=== PATIENT | male | born 1940 | race Caucasian/White ===

== ENCOUNTER 2016-12-19 11:59 | Emergency (ER) | payer OTHER ==
[~2016-12-19] VITALS: Ht 180.3 cm; Wt 68.9 kg
[2016-12-19 12:50] LABS: *BILIRUBIN,URIN 1+ (NEGATIVE); *BLOOD, URINE NEGATIVE (NEGATIVE); *CLARITY,URINE CLEAR (CLEAR); *KETONES,URINE NEGATIVE (NEGATIVE); LEUKOCYTE ESTERASE ,URINE NEGATIVE (NEGATIVE); NITRITE, URINE NEGATIVE (NEGATIVE); UGLUCOSE NEGATIVE (NEGATIVE)
[2016-12-19 12:51] LABS: BASOPHILS # (AUTO) 0.1 K/uL (0.0-8.0); BASOPHILS % (AUTO) 1.9 % (0.0-2.0); EOSINOPHILS # (AUTO) 0.2 K/uL (0.0-0.7); EOSINOPHILS % (AUTO) 3.1 % (0.0-7.0); HEMATOCRIT 35.3 % (40-50); HEMOGLOBIN 11.1 G/DL (14.0-18.0); LYMPHOCYTES # (AUTO) 1.8 K/UL (0.8-4.8); LYMPHOCYTES % (AUTO) 31.3 % (20.5-51.5); MEAN CORPUSCULAR HEMOGLOBIN 29.4 UUG (27.0-31.0); MEAN CORPUSCULAR HGB CONC 31 g/dL (32.0-37.0); MEAN CORPUSCULAR VOLUME 93.6 FL (82.0-92.0); MONOCYTES # (AUTO) 0.4 K/UL (0.1-1.30); NEUTROPHILS # (AUTO) 3.4 K/UL (1.8-8.9); NEUTROPHILS % (AUTO) 57.7 % (38.5-71.5); PLATELET COUNT (AUTO) 214 K/UL (150-450); RED BLOOD CELL COUNT(AUTO) 3.78 MIL/UL (4.7-6.1); RED CELL DISTRIBUTION WIDTH 14.6 % (11.5-14.5); WHITE BLOOD COUNT (AUTO) 5.9 K/UL (4.0-11.2)
[2016-12-19 13:02] LABS: *COLOR,URINE DARK YELLOW (YELLOW); *PROTEIN,URINE TRACE (NEGATIVE)
[2016-12-19 13:03] LABS: BACTERIA,URINE NONE SEEN /HPF (NONE SEEN); RBC,URINE 0-3 /HPF (0-3); SQUAMOUS EPITHELIAL CELL,UR FEW /HPF (NONE SEEN); WBC,URINE 0-3 /HPF (0-3)
[2016-12-19 13:04] LABS: MUCUS,URINE MANY /LPF (0-FEW)
[2016-12-19 13:13] LABS: CALCIUM 8.7 mg/dL (8.5-10.1); CREATININE 1.1 mg/dL (0.6-1.3); POTASSIUM 4.3 mmol/L (3.5-5.1)
[2016-12-19 13:28] LABS: ALBUMIN 3.4 g/dL (3.4-5.0); BILIRUBIN,DIRECT 0.1 mg/dL (0.0-0.2); BILIRUBIN,TOTAL 0.6 mg/dL (0.2-1.0); TOTAL PROTEIN, SERUM 7.7 g/dL (6.4-8.2)
--- NOTE | 2016-12-19 13:44 | NUR ---
1341- Patient discharged to home in stable conditon. Written and verbal after care instructions given to patient. Patient verbalizes understanding of instructions.
== END 2016-12-19 13:45 | disposition home or self-care (01) ==
LOC: ER 12:12
DX: N40.0 Benign prostatic hyperplasia without lower urinary tract symptoms (principal); F17.200 Nicotine dependence, unspecified, uncomplicated
CPT/HCPCS: 36415; 80048; 80076; 81001; 85025; 99284; A4663

== ENCOUNTER 2017-03-14 18:12 | Emergency (ER) | payer SELFPAY ==
[~2017-03-14] VITALS: Ht 180.3 cm; Wt 70.3 kg
--- NOTE | 2017-03-14 18:40 | NUR ---
DR KRUEGER AT THE BEDSIDE FOR EVAL AND EXAM.
[2017-03-14] MEDS ORDERED: ACETAMINOPHEN 325 MG TABLET PO ONE (18:45)
[2017-03-14] MEDS ORDERED: ACETAMINOPHEN 325 MG TABLET ONE (18:56)
--- NOTE | 2017-03-14 19:08 | NUR ---
Received report from JACOB Coyne. Assumed care of pt at this time. Xray at bedside.
--- NOTE | 2017-03-14 19:27 | NUR ---
PT stable for discharge per MD. Pt given ACI. Pt verbalized understanding of dc instructions. Pt ambulated out of er with steady gait.
[2017-03-14 19:29] VITALS: BP 162/60
== END 2017-03-14 19:30 | disposition home or self-care (01) ==
LOC: ER 18:13
DX: S56.911A Strain of unspecified muscles, fascia and tendons at forearm level, right arm, initial encounter (principal); S80.02XA Contusion of left knee, initial encounter; N40.0 Benign prostatic hyperplasia without lower urinary tract symptoms; F17.200 Nicotine dependence, unspecified, uncomplicated; V79.59XA Passenger on bus injured in collision with other motor vehicles in traffic accident, initial encounter; Y93.89 Activity, other specified; Y92.413 State road as the place of occurrence of the external cause; Y99.9 Unspecified external cause status
CPT/HCPCS: A4663

== ENCOUNTER 2021-11-21 15:07 | Inpatient (IN) | payer OTHER ==
[~2021-11-21] VITALS: Ht 180.3 cm; Wt 69.9 kg
--- NOTE | 2021-11-21 15:15 | NUR ---
[facility] brought patient in found [place] the bus stop defacated on self, bilateral legs swollen, patient is hot to touch, afib. patient taken to room 3a. waiting for ER physician for eval.
[2021-11-21] MEDS ORDERED: VANCOMYCIN IV 1,000 MG in IV DEXTROSE 5% 250 ML IV ONE (15:30)
[2021-11-21] MEDS ORDERED: DILTIAZEM HCL 25 MG IV IV ONE (15:30)
[2021-11-21] MEDS ORDERED: ACETAMINOPHEN 325 MG SUPP RC ONE (15:30)
[2021-11-21] MEDS ORDERED: IV NORMAL SALINE 1000 ML BAG IV ONE ×3 (15:30→17:00)
[2021-11-21] MEDS ORDERED: ACETAMINOPHEN 650 MG SUPP.RECT RC ONE ×2 (15:30→16:30)
[2021-11-21 16:21] LABS: ABG BASE EXCESS -5.8 mmol/L; ABG HCO3 14.3 mmol/L; ABG PCO2 17.9 mmHg (35.0-45.0); ABG PH 7.519 (7.350-7.450); ABG PO2 393.5 mmHg (75.0-100.0); ABG SITE RIGHT RADIAL; COHb 0.3 % (0.5-1.5); MetHb 0.3 % (0.0-1.5); O2Hb 99.3 % (94.0-97.0)
[2021-11-21 16:24] LABS: HEMATOCRIT 40.8 % (36.7-47.1); MEAN CORPUSCULAR HEMOGLOBIN 32.2 uug (23.8-33.4); MEAN CORPUSCULAR VOLUME 95.6 fL (73.0-96.2); PLATELET COUNT (AUTO) 101 K/uL (152-348)
[2021-11-21] MEDS ORDERED: VANCOMYCIN IV 200 ML ONE (16:29)
[2021-11-21] MEDS ORDERED: ONDANSETRON 4 MG/2 ML VIAL IV ONE (16:30)
[2021-11-21] MEDS ORDERED: ACETAMINOPHEN 325 MG SUPP ONE (16:30)
[2021-11-21] MEDS ORDERED: MORPHINE SULFATE 2 MG/1 ML DISP.SYRIN IV ONE (16:30)
[2021-11-21] MEDS ORDERED: ONDANSETRON 4 MG/2 ML VIAL ONE (16:30)
[2021-11-21] MEDS ORDERED: MORPHINE SULFATE 2 MG/1 ML DISP.SYRIN ONE (16:30)
[2021-11-21 16:35] LABS: *BILIRUBIN,URIN 2+ (NEGATIVE); *BLOOD, URINE 3+ (NEGATIVE); *CLARITY,URINE CLOUDY (CLEAR); *COLOR,URINE DARK YELLOW (YELLOW); *KETONES,URINE TRACE (NEGATIVE); *UROBILINOGEN,URINE 0.2 E.U./dl (NORMAL); LEUKOCYTE ESTERASE ,URINE NEGATIVE (NEGATIVE); NITRITE, URINE NEGATIVE (NEGATIVE); UGLUCOSE NEGATIVE (NEGATIVE)
[2021-11-21 16:40] LABS: ALANINE AMINOTRANSFERASE 230 U/L (16-63); ALKALINE PHOSPHATASE 38 U/L (50-136); ASPARTATE AMINOTRANSFERASE 636 U/L (15-37); BILIRUBIN,DIRECT 0.5 mg/dL (0.0-0.2); BILIRUBIN,TOTAL 1.8 mg/dL (0.2-1.0); CARBON DIOXIDE 17 mmol/L (21-32); CHLORIDE 105 mmol/L (98-107); CREATININE 5.6 mg/dL (0.6-1.3); ETHANOL < 3 MG/DL (0-0); GLUCOSE 97 mg/dL (74-106); POTASSIUM 3.9 mmol/L (3.5-5.1); TOTAL PROTEIN, SERUM 6.3 g/dL (6.4-8.2)
[2021-11-21 16:41] LABS: *AMPHETAMINE, URINE NEGATIVE (NEGATIVE); *CANNABINOID, URINE NEGATIVE (NEGATIVE); *COCCAINE, URINE NEGATIVE (NEGATIVE); *OPIATE, URINE NEGATIVE (NEGATIVE); *PHENCYCLIDINE SCREEN,URINE NEGATIVE (NEGATIVE)
[2021-11-21 16:45] LABS: ACETAMINOPHEN < 2.0 ug/mL (10-30)
[2021-11-21 16:46] LABS: UREA NITROGEN, BLOOD 84 mg/dL (7-18)
[2021-11-21 16:56] LABS: THYROID STIMULATING HORMONE 3.497 mIU/mL (0.358-3.740)
[2021-11-21] MEDS ORDERED: DILTIAZEM HCL 25 MG IV ONE (16:57)
[2021-11-21] MEDS ORDERED: PIPERACILLIN SODIUM/TAZOBACTAM 3.375 G in IV DEXTROSE 5% 50 ML IV ONE (17:00)
[2021-11-21] MEDS ORDERED: PIPERACILLIN/TAZOBACTAM/D5W 50 ML IV ONE (17:03)
[2021-11-21 17:49] LABS: CREATINE KINASE, TOTAL > 14000 U/L (39-308)
[2021-11-21] MEDS ORDERED: LORAZEPAM 2 MG/1 ML VIAL IV ONE (18:15)
[2021-11-21] MEDS ORDERED: MORPHINE SULFATE 2 MG/1 ML DISP.SYRIN IV PRN (18:30)
[2021-11-21] MEDS ORDERED: LORAZEPAM 2 MG/1 ML VIAL IV PRN (18:30)
[2021-11-21] MEDS ORDERED: ONDANSETRON 4 MG/2 ML VIAL IV PRN (18:30)
--- NOTE | 2021-11-21 18:37 | NUR ---
Patient back from CT scan. wound care done. continue IV fluids and abx.
[2021-11-21 18:51] LABS: BACTERIA,URINE FEW /HPF (NONE SEEN); WBC,URINE 0-3 /HPF (0-3)
[2021-11-21 18:52] LABS: SQUAMOUS EPITHELIAL CELL,UR NONE SEEN /HPF (NONE SEEN)
[2021-11-21] MEDS ORDERED: AMIODARONE HCL IV 150 MG in IV DEXTROSE 5% 100 ML IV ONE (19:15)
--- NOTE | 2021-11-21 19:20 | NUR ---
report given to elias JAMES. informed Carol of critical labs new orders placed by carol.
[2021-11-21] MEDS ORDERED: AMIODARONE HCL 150 MG/3 ML VIAL IV ONE (19:22)
[2021-11-21 19:30] VITALS: BP 123/67
--- NOTE | 2021-11-21 19:30 | NUR ---
Received report from Raven JAMES. Pt awake and alert, respiration even and unlabored, NC @2L O2 sat 94% Denies any difficulty breathing/no SOB. ILEANA PIV g 20 intact, unable to flush, Lt Wrist PIV g20 intact. PICC line ordered by Dr Pizano. On supervisor policy change clerks Afib RVR 130's, SBP 90-100's. Amiodarone ordered, Pt denies any CP. Reese catheter intact, draining beverley cloudy colored urine about 50 ml in the bag. Dressing to bilateral leg intact. Will closely monitor pt condition, transfer pt to ICU bed.
[2021-11-21 20:00] VITALS: BP 93/53
[2021-11-21 21:00] VITALS: BP 93/50
[2021-11-21] MEDS: AMIODARONE HCL IV 450 MG in IV DEXTROSE 5% 250 ML IV PRN (21:38)
[2021-11-21] MEDS ORDERED: HEPARIN SODIUM,PORCINE 5,000 UNITS/ML VIAL ONE (21:43)
[2021-11-21] MEDS ORDERED: CLINDAMYCIN PHOSPHATE 600 MG/4 ML VIAL ONE (21:43)
[2021-11-21] MEDS: CLINDAMYCIN PHOSPHATE IV 600 MG in IV DEXTROSE 5% 100 ML IV SCH (21:46)
[2021-11-21] MEDS: HEPARIN SODIUM,PORCINE 5,000 UNITS/ML VIAL SQ SCH (21:47)
[2021-11-21] MEDS: IV NS 1000 ML 1,000 ML IV PRN (21:51)
[2021-11-21 22:00] VITALS: BP_SYST 92; BP_SYST 93; BP_DIAS 48; BP_DIAS 56
[2021-11-21] MEDS ORDERED: PIPERACILLIN/TAZO 2.25 G in IV DEXTROSE 5% 50 ML IV SCH (22:00)
[2021-11-21 22:52] LABS: CARBON DIOXIDE 20 mmol/L (21-32); CHLORIDE 107 mmol/L (98-107); GLUCOSE 99 mg/dL (74-106); POTASSIUM 3.9 mmol/L (3.5-5.1)
[2021-11-21 22:53] LABS: CREATININE 5.6 mg/dL (0.6-1.3); UREA NITROGEN, BLOOD 82 mg/dL (7-18)
[2021-11-21 23:00] VITALS: BP 62/44
--- NOTE | 2021-11-21 23:15 | NUR ---
SBP 60's Joseph GROUND SUPPORT AGENT made aware with order to start Levophed Drip.
[2021-11-21] MEDS ORDERED: NOREPINEPHRINE BITARTRATE 4 MG/4 ML VIAL IV ONE (23:21)
[2021-11-21] MEDS ORDERED: NOREPINEPHRINE BITARTRATE 8 MG in IV NORMAL SALINE 242 ML IV PRN (23:30)
[2021-11-22] VITALS (92 sets, daily range): BP systolic 72–143; BP diastolic 45–79
[2021-11-22] MEDS ORDERED: NOREPINEPHRINE BITARTRATE 8 MG in IV NORMAL SALINE 242 ML IV PRN ×2
--- NOTE | 2021-11-22 00:06 | NUR ---
Levophed drip started titrated to maintain SBP >90.
--- NOTE | 2021-11-22 00:28 | NUR ---
Called and left a message to Joseph BROWN regarding pt's HR 120-130, awaiting to call back.
--- NOTE | 2021-11-22 00:36 | NUR ---
Called the answering service for [facility], awaiting Dr Perera to call back.
[2021-11-22] MEDS ORDERED: DIGOXIN 500 MCG/2 ML AMP IV ONE (00:45)
[2021-11-22] MEDS ORDERED: DIGOXIN 500 MCG/2 ML AMP IV SCH (00:45)
--- NOTE | 2021-11-22 00:50 | NUR ---
Dr Perera called back and updated on pt's present condition, AFib 130-140's Levophed drip, amio drip with order to give Digoxin IV and change levophed drip to Neosynephrine Drip.
[2021-11-22] MEDS ORDERED: AMIODARONE HCL 150 MG/3 ML VIAL IV ONE (01:27)
[2021-11-22] MEDS ORDERED: PHENYLEPHRINE 10 MG/1 ML VIAL ONE (01:29)
[2021-11-22] MEDS: PHENYLEPHRINE IV 50 MG in IV NORMAL SALINE 245 ML IV PRN ×2 (01:56→19:22)
[2021-11-22] MEDS: AMIODARONE HCL IV 450 MG in IV DEXTROSE 5% 250 ML IV PRN ×2 (02:13→14:03)
[2021-11-22] MEDS ORDERED: PIPERACILLIN/TAZO 2.25 G in IV DEXTROSE 5% 50 ML IV SCH (04:00)
[2021-11-22] MEDS: IV NS 1000 ML 1,000 ML IV PRN (04:03)
--- NOTE | 2021-11-22 04:03 | NUR ---
Titrated Neosynephrine to maintain SBP >90.
[2021-11-22] MEDS ORDERED: PIPERACILLIN/TAZO 2.25 GM VIAL ONE (04:05)
[2021-11-22] MEDS ORDERED: CLINDAMYCIN PHOSPHATE 600 MG/4 ML VIAL ONE (05:09)
[2021-11-22] MEDS: CLINDAMYCIN PHOSPHATE IV 600 MG in IV DEXTROSE 5% 100 ML IV SCH ×3 (05:13→22:39)
[2021-11-22 06:18] LABS: CARBON DIOXIDE 18 mmol/L (21-32); CHLORIDE 107 mmol/L (98-107); GLUCOSE 93 mg/dL (74-106); PHOSPHOROUS 6.5 mg/dL (2.5-4.9); POTASSIUM 4.6 mmol/L (3.5-5.1)
--- NOTE | 2021-11-22 06:44 | NUR ---
Urine output minimal, Joseph HOT POND OPERATOR made aware. Orders made and carried out.
[2021-11-22 07:05] LABS: UREA NITROGEN, BLOOD 90 mg/dL (7-18)
[2021-11-22] MEDS ORDERED: SODIUM BICARBONATE 8.4% 50 MEQ in IV D5W 1000ML 1,000 ML IV PRN ×2 (07:15→07:25)
--- NOTE | 2021-11-22 07:58 | NUR ---
Patient is in bed, resting. Easily arousable. AO x 3. Running Neosynephrine at 0.7mcg and amiodarone at 0.5mg. No respiratory distress at the moment. On 2L nasal cannula saturating 98%. Left upper arm PICC line patent and intact. Reese catheter draining minimal urine. Dressing on bilateral lower extremities intact.
[2021-11-22] MEDS ORDERED: THIAMINE HCL 100 MG TABLET ONE (08:22)
[2021-11-22] MEDS ORDERED: PANTOPRAZOLE SODIUM 40 MG VIAL ONE (08:22)
[2021-11-22] MEDS ORDERED: ASPIRIN EC 81 MG TABLET.DR PO ONE (08:22)
[2021-11-22] MEDS ORDERED: HEPARIN SODIUM,PORCINE 5,000 UNITS/ML VIAL ONE (08:22)
[2021-11-22] MEDS: PANTOPRAZOLE SODIUM 40 MG VIAL IV SCH (08:24)
[2021-11-22] MEDS: ASPIRIN EC 81 MG TABLET.DR PO SCH ×2 (08:24→09:00)
[2021-11-22] MEDS: THIAMINE HCL 100 MG TABLET PO SCH ×2 (08:24→09:00)
[2021-11-22] MEDS: HEPARIN SODIUM,PORCINE 5,000 UNITS/ML VIAL SQ SCH (08:43)
--- NOTE | 2021-11-22 08:45 | NUR ---
Patient presents with difficulty swallowing. Conducted bedside swallow eval and patient retains water in mouth. Patient also states that he has a hard time to swallow. Awaiting speech therapy to conduct swallow eval.
--- NOTE | 2021-11-22 09:19 | NUR ---
Dr. Gerard at bedside assesing patient with order to bolus patient with 500mL of NS and to continue with the 150mL/hr of NS.
[2021-11-22 10:10] LABS: HEMATOCRIT 34.8 % (36.7-47.1); MEAN CORPUSCULAR HEMOGLOBIN 32.7 uug (23.8-33.4); MEAN CORPUSCULAR VOLUME 96.2 fL (73.0-96.2); PLATELET COUNT (AUTO) 50 K/uL (152-348)
[2021-11-22] MEDS ORDERED: IV NORMAL SALINE 1000 ML BAG IV ONE (10:15)
[2021-11-22] MEDS ORDERED: IV NORMAL SALINE 500 ML BAG IV ONE (10:15)
[2021-11-22 10:16] LABS: CARBON DIOXIDE 18 mmol/L (21-32); CHLORIDE 106 mmol/L (98-107); GLUCOSE 161 mg/dL (74-106); POTASSIUM 4.3 mmol/L (3.5-5.1)
[2021-11-22 10:17] LABS: UREA NITROGEN, BLOOD 89 mg/dL (7-18)
[2021-11-22] MEDS ORDERED: IV NORMAL SALINE 500 ML IV ONE (10:30)
[2021-11-22] MEDS ORDERED: IV NS 1000 ML 1,000 ML IV PRN ×2 (10:30→10:45)
--- NOTE | 2021-11-22 10:36 | NUR ---
followed up with Dr. Gerard and stated no need for NS at 150mL/hr
--- NOTE | 2021-11-22 10:55 | NUR ---
Patient seen by speech therapist for swallow eval. Patient need to be kept NPO for now, unable to swallow.
--- NOTE | 2021-11-22 11:01 | NUR ---
Per Roberto, order thiamine 100mg IVPB, and for patient to be NPO
[2021-11-22] MEDS ORDERED: THIAMINE HCL 200 MG/2 ML VIAL IV SCH (11:30)
[2021-11-22 12:38] LABS: CARBON DIOXIDE 19 mmol/L (21-32); CHLORIDE 108 mmol/L (98-107); CREATININE 5.9 mg/dL (0.6-1.3); GLUCOSE 165 mg/dL (74-106); POTASSIUM 4.3 mmol/L (3.5-5.1)
[2021-11-22 12:43] LABS: UREA NITROGEN, BLOOD 92 mg/dL (7-18)
--- NOTE | 2021-11-22 12:51 | NUR ---
Woundcare rendered. Wound cultures of left and right leg sent. Wound encompass a large surface area on both left and right lower extremities. Wound appears red, sloughed and heavily oozing. Awaiting wound care consult.
[2021-11-22] MEDS: THIAMINE HCL INJ 100 MG in IV DEXTROSE 5% 50 ML IV SCH (13:01)
--- NOTE | 2021-11-22 14:30 | NUR ---
Patient getting echocardiogram done.
[2021-11-22] MEDS: PIPERACILLIN/TAZO 2.25 G in IV DEXTROSE 5% 50 ML IV SCH ×2 (15:02→22:45)
--- NOTE | 2021-11-22 15:44 | NUR ---
Per Dr. Gerard, decrease the fluids to 75mL/hr
[2021-11-22] MEDS: SODIUM BICARBONATE 8.4% 50 MEQ in IV D5W 1000ML 1,000 ML IV PRN (17:28)
[2021-11-22 20:20] LABS: CARBON DIOXIDE 19 mmol/L (21-32); CHLORIDE 103 mmol/L (98-107); CREATININE 6.7 mg/dL (0.6-1.3); GLUCOSE 134 mg/dL (74-106); POTASSIUM 4.6 mmol/L (3.5-5.1)
--- NOTE | 2021-11-22 20:23 | NUR ---
Per Dr. Gerard, keep patient on amiodarone at 0.5mg/min and will evaluate patient in the morning.
[2021-11-22 20:42] LABS: UREA NITROGEN, BLOOD 97 mg/dL (7-18)
[2021-11-22 20:45] LABS: BAND % (MANUAL) 22 % (0-10); LYMPHOCYTES % (MANUAL) 4 % (20-40); MONOCYTES % (MANUAL) 4 % (2-10); NEUTROPHILS % (MANUAL) 70 % (42-75)
[2021-11-22] MEDS ORDERED: HEPARIN SODIUM,PORCINE 5,000 UNITS/ML VIAL SQ SCH (21:00)
[2021-11-23] VITALS (62 sets, daily range): BP systolic 54–169; BP diastolic 29–113
[2021-11-23] MEDS ORDERED: AMIODARONE HCL 150 MG/3 ML VIAL IV ONE (02:44)
[2021-11-23] MEDS: CLINDAMYCIN PHOSPHATE IV 600 MG in IV DEXTROSE 5% 100 ML IV SCH ×2 (05:07→18:32)
[2021-11-23 05:14] LABS: ALANINE AMINOTRANSFERASE 365 U/L (16-63); ALKALINE PHOSPHATASE 39 U/L (50-136); ASPARTATE AMINOTRANSFERASE 391 U/L (15-37); BILIRUBIN,TOTAL 1.3 mg/dL (0.2-1.0); CARBON DIOXIDE 23 mmol/L (21-32); CHLORIDE 104 mmol/L (98-107); CREATININE 6.9 mg/dL (0.6-1.3); GLUCOSE 121 mg/dL (74-106); MAGNESIUM 2.2 mg/dL (1.8-2.4); PHOSPHOROUS 6.3 mg/dL (2.5-4.9); POTASSIUM 4.7 mmol/L (3.5-5.1); VANCOMYCIN,RANDOM 10.9 ug/mL (18.0-26.0)
[2021-11-23 05:20] LABS: UREA NITROGEN, BLOOD 101 mg/dL (7-18)
[2021-11-23] MEDS: SODIUM BICARBONATE 8.4% 50 MEQ in IV D5W 1000ML 1,000 ML IV PRN (06:04)
[2021-11-23] MEDS: PIPERACILLIN/TAZO 2.25 G in IV DEXTROSE 5% 50 ML IV SCH ×2 (06:04→18:32)
[2021-11-23] MEDS ORDERED: PHENYLEPHRINE 10 MG/1 ML VIAL ONE (06:23)
[2021-11-23] MEDS: PHENYLEPHRINE IV 50 MG in IV NORMAL SALINE 245 ML IV PRN (06:31)
[2021-11-23] MEDS ORDERED: NOREPINEPHRINE BITARTRATE 8 MG in IV NORMAL SALINE 242 ML IV PRN (07:45)
[2021-11-23] MEDS ORDERED: VANCOMYCIN IV 1,000 MG in IV DEXTROSE 5% 250 ML IV ONE (08:00)
[2021-11-23 08:06] LABS: HEPATITIS A AB, TOTAL Negative (Negative)
[2021-11-23] MEDS ORDERED: ASPIRIN EC 81 MG TABLET.DR PO SCH (09:00)
[2021-11-23] MEDS ORDERED: PANTOPRAZOLE SODIUM 40 MG VIAL ONE (09:58)
[2021-11-23 10:00] LABS: CARBON DIOXIDE 20 mmol/L (21-32); CHLORIDE 104 mmol/L (98-107); CREATININE 6.9 mg/dL (0.6-1.3); GLUCOSE 107 mg/dL (74-106); POTASSIUM 4.7 mmol/L (3.5-5.1)
[2021-11-23] MEDS: PANTOPRAZOLE SODIUM 40 MG VIAL IV SCH (10:01)
[2021-11-23 10:24] LABS: HEMATOCRIT 40.2 % (36.7-47.1); MEAN CORPUSCULAR HEMOGLOBIN 31.7 uug (23.8-33.4)
[2021-11-23 10:29] LABS: PLATELET COUNT (AUTO) 37 K/uL (152-348)
[2021-11-23 10:30] LABS: UREA NITROGEN, BLOOD 107 mg/dL (7-18)
[2021-11-23 10:37] LABS: CREATINE KINASE, TOTAL 12534 U/L (39-308)
[2021-11-23] MEDS: NOREPINEPHRINE BITARTRATE 32 MG in IV NORMAL SALINE 218 ML IV PRN (11:42)
--- NOTE | 2021-11-23 12:52 | NUR ---
WOUND CARE CONSULT: PT PRESENTS WITH MULTIPLE WOUNDS AND SKIN ISSUES, PRESENT ON ADMISSION INCLUDING HUGE OPEN AREAS TO LOWER LEGS, LEFT KNEE/UPPER LEG OPEN AREA, INTACT BLISTER TO RT KNEE, DRY WOUND TO RT ANTERIOR THIGH, INTACT DEEP TISSUE INJURIES TO SACRUM AND BUTTOCKS. PT SEEN WITH SURGICAL P.A. (DR RICKETTS TEAM) AND DR VELA CALLED FOR DPM CONSULT. RECOMMENDATIONS MADE FOR SKIN PROTECTION AND WOUND CARE. DISCUSSED WITH NURSING STAFF. FIRST STEP LOW AIRLOSS MATTRESS IS ON ORDER. MD IN AGREEMENT WITH PLAN OF CARE.
[2021-11-23] MEDS: THIAMINE HCL INJ 100 MG in IV DEXTROSE 5% 50 ML IV SCH (13:29)
[2021-11-23] MEDS: AMIODARONE HCL IV 450 MG in IV DEXTROSE 5% 250 ML IV PRN (14:59)
--- NOTE | 2021-11-23 19:00 | NUR ---
Patient had dialysis today and tolerated well, 2L removed. Patient continues to be nonverbal and responsive only to pain. WOund care nurse and general surgery PA saw patient and redressed wounds. Patient now has dialysis catheter in right femoral. and is on levophed 0.2 mcg/kg/min
[2021-11-23 23:46] LABS: BAND % (MANUAL) 10 % (0-10); LYMPHOCYTES % (MANUAL) 11 % (20-40); MONOCYTES % (MANUAL) 3 % (2-10); NEUTROPHILS % (MANUAL) 76 % (42-75)
[2021-11-24] VITALS (87 sets, daily range): BP systolic 83–144; BP diastolic 33–102
[2021-11-24] MEDS: PIPERACILLIN/TAZO 2.25 G in IV DEXTROSE 5% 50 ML IV SCH ×4 (01:03→22:56)
[2021-11-24] MEDS: CLINDAMYCIN PHOSPHATE IV 600 MG in IV DEXTROSE 5% 100 ML IV SCH ×2 (01:13→06:24)
[2021-11-24] MEDS: AMIODARONE HCL IV 450 MG in IV DEXTROSE 5% 250 ML IV PRN (04:25)
[2021-11-24 05:02] LABS: HEMATOCRIT 36.9 % (36.7-47.1); MEAN CORPUSCULAR HEMOGLOBIN 31.9 uug (23.8-33.4); MEAN CORPUSCULAR VOLUME 93.9 fL (73.0-96.2)
[2021-11-24 05:10] LABS: CARBON DIOXIDE 22 mmol/L (21-32); CHLORIDE 103 mmol/L (98-107); CREATININE 5.8 mg/dL (0.6-1.3); GLUCOSE 117 mg/dL (74-106); POTASSIUM 4.3 mmol/L (3.5-5.1)
[2021-11-24 05:12] LABS: UREA NITROGEN, BLOOD 81 mg/dL (7-18)
[2021-11-24 05:13] LABS: MAGNESIUM 1.9 mg/dL (1.8-2.4); PHOSPHOROUS 5.3 mg/dL (2.5-4.9); PLATELET COUNT (AUTO) 15 K/uL (152-348)
--- NOTE | 2021-11-24 05:15 | NUR ---
Report received from Niharika JAMES at this time.
[2021-11-24 06:07] LABS: HEPATITIS B SURFACE AG Negative (Negative)
[2021-11-24] MEDS ORDERED: ACETAMINOPHEN 650 MG SUPP.RECT RC PRN (07:30)
--- NOTE | 2021-11-24 07:50 | NUR ---
Dr. jones rounding on patient possible plan for EEG due to poor response.
--- NOTE | 2021-11-24 08:02 | NUR ---
arterial ultrasound being done at this time.
--- NOTE | 2021-11-24 08:17 | NUR ---
Dr. naik in unit can DC amiodarone drip for now.
--- NOTE | 2021-11-24 08:46 | NUR ---
Ok to start NGT per Real Prado and nutritional consult order start feeding per recommendations.
--- NOTE | 2021-11-24 09:08 | NUR ---
NGT placed left nare at 55. ordered cxr for placement.
[2021-11-24] MEDS: NOREPINEPHRINE BITARTRATE 32 MG in IV NORMAL SALINE 218 ML IV PRN (09:28)
[2021-11-24] MEDS: THIAMINE HCL 100 MG TABLET NG SCH (09:34)
[2021-11-24] MEDS: PANTOPRAZOLE SODIUM 40 MG VIAL IV SCH (09:34)
[2021-11-24] MEDS: FOLIC ACID 1 MG TABLET NG SCH (09:34)
--- NOTE | 2021-11-24 10:13 | NUR ---
advanced ngt to 70. dietary recommendations are to start Nepro @10ml advance q8 hours or as tolerated by 10-20ml with goal rate of 55ml x 22hrs.
--- NOTE | 2021-11-24 12:05 | NUR ---
WOUND CARE CONSULT: RECEIVED SECOND CONSULT. DEFER TO SURGICAL AND PODIATRY TEAMS CURRENTLY ON CASE. PT IS ON FIRST STEP [facility]. IN AGREEMENT WITH PLAN OF CARE.
[2021-11-24] MEDS: MODAFINIL 100 MG TABLET NG SCH (12:16)
[2021-11-24 13:06] LABS: A/G RATIO 0.8 (0.7-1.7); ALBUMIN 1.9 g/dL (2.9-4.4); ALPHA-1-GLOBULIN 0.3 g/dL (0.0-0.4); ALPHA-2-GLOBULIN 0.8 g/dL (0.4-1.0); BETA GLOBULIN 0.6 g/dL (0.7-1.3); GAMMA GLOBULIN 0.7 g/dL (0.4-1.8); GLOBULIN, TOTAL 2.5 g/dL (2.2-3.9); M-SPIKE Not Observed g/dL (Not Observed)
[2021-11-24] MEDS ORDERED: VANCOMYCIN IV 500 MG in IV DEXTROSE 5% 100 ML IV ONE (16:00)
[2021-11-24 18:17] LABS: ABG BASE EXCESS -2.9 mmol/L; ABG HCO3 19.3 mmol/L; ABG PCO2 26.8 mmHg (35.0-45.0); ABG PH 7.475 (7.350-7.450); ABG PO2 101.4 mmHg (75.0-100.0); ABG SITE RIGHT RADIAL; ABG TOTAL HEMOGLOBIN 12.8 G/dL (13.5-18.0); COHb 0.1 % (0.5-1.5); MetHb 0.2 % (0.0-1.5); O2Hb 97.4 % (94.0-97.0); VENT MODE Nasal Cannula
[2021-11-25] VITALS (92 sets, daily range): BP systolic 72–140; BP diastolic 40–99
[2021-11-25 04:47] LABS: HEMATOCRIT 34.3 % (36.7-47.1); MEAN CORPUSCULAR HEMOGLOBIN 32.2 uug (23.8-33.4)
[2021-11-25 04:54] LABS: PLATELET COUNT (AUTO) 18 K/uL (152-348)
[2021-11-25 04:59] LABS: ALANINE AMINOTRANSFERASE 317 U/L (16-63); ALKALINE PHOSPHATASE 56 U/L (50-136); ASPARTATE AMINOTRANSFERASE 210 U/L (15-37); BILIRUBIN,TOTAL 1.1 mg/dL (0.2-1.0); CARBON DIOXIDE 24 mmol/L (21-32); CHLORIDE 104 mmol/L (98-107); CREATININE 6.7 mg/dL (0.6-1.3); GLUCOSE 125 mg/dL (74-106); MAGNESIUM 2.2 mg/dL (1.8-2.4); POTASSIUM 4.1 mmol/L (3.5-5.1); TOTAL PROTEIN, SERUM 4.7 g/dL (6.4-8.2); VANCOMYCIN,RANDOM 16.3 ug/mL (18.0-26.0)
[2021-11-25 05:02] LABS: UREA NITROGEN, BLOOD 106 mg/dL (7-18)
[2021-11-25] MEDS: PIPERACILLIN/TAZO 2.25 G in IV DEXTROSE 5% 50 ML IV SCH (06:22)
--- NOTE | 2021-11-25 07:33 | NUR ---
Pt had critical labs. Platelets 18, BUN 106 and Albumin 1.4. Results called in to Dr. Pelayo who stated that he will inform Kevin who will be rounding on the patient. Report endorsed to Raven Moe RN.
[2021-11-25 08:07] LABS: *IMMUNOGLOBULIN G, SERUM 749 mg/dL (603-1613); IMMUNOGLOBULIN A, SERUM 229 mg/dL (61-437); IMMUNOGLOBULIN M, SERUM 31 mg/dL (15-143)
[2021-11-25] MEDS ORDERED: NOREPINEPHRINE BITARTRATE 8 MG in IV DEXTROSE 5% 500 ML IV PRN (08:15)
[2021-11-25] MEDS ORDERED: NOREPINEPHRINE BITARTRATE 8 MG in IV NORMAL SALINE 242 ML IV PRN ×2 (08:15→13:00)
[2021-11-25] MEDS ORDERED: FOLIC ACID 1 MG TABLET ONE (08:30)
[2021-11-25] MEDS ORDERED: THIAMINE HCL 100 MG TABLET ONE (08:31)
[2021-11-25] MEDS ORDERED: PANTOPRAZOLE SODIUM 40 MG VIAL ONE (08:31)
[2021-11-25] MEDS: FOLIC ACID 1 MG TABLET NG SCH (09:03)
[2021-11-25] MEDS: PANTOPRAZOLE SODIUM 40 MG VIAL IV SCH (09:03)
[2021-11-25] MEDS: THIAMINE HCL 100 MG TABLET NG SCH (09:03)
[2021-11-25] MEDS: MODAFINIL 100 MG TABLET NG SCH (09:05)
[2021-11-25] MEDS ORDERED: MODAFINIL 100 MG TABLET ONE (09:05)
[2021-11-25 09:06] LABS: *ANTI-SCLERODERMA-70 AB <0.2 AI (0.0-0.9); *SJOGREN'S ANTI-SS-A <0.2 AI (0.0-0.9); *SJOGREN'S ANTI-SS-B <0.2 AI (0.0-0.9); *SMITH ANTIBODIES <0.2 AI (0.0-0.9); ANTI-DNA(DS) AB, QN <1 IU/mL (0-9)
--- NOTE | 2021-11-25 11:53 | NUR ---
called lab. platelets have to be ordered from [facility] wait time may be upto 4 or 5 hrs to obtain.
[2021-11-25 12:07] LABS: A/G RATIO 0.8 (0.7-1.7); ALBUMIN 1.8 g/dL (2.9-4.4); ALPHA-1-GLOBULIN 0.4 g/dL (0.0-0.4); ALPHA-2-GLOBULIN 0.8 g/dL (0.4-1.0); BETA GLOBULIN 0.5 g/dL (0.7-1.3); GAMMA GLOBULIN 0.7 g/dL (0.4-1.8); GLOBULIN, TOTAL 2.4 g/dL (2.2-3.9); M-SPIKE Not Observed g/dL (Not Observed)
[2021-11-25] MEDS: NOREPINEPHRINE BITARTRATE 8 MG in IV NORMAL SALINE 242 ML IV PRN (13:06)
[2021-11-25] MEDS: CEFTRIAXONE 1 G in IV DEXTROSE 5% 50 ML IV SCH (13:46)
[2021-11-25 14:41] LABS: IRON, SERUM 30 ug/dL (50-175)
[2021-11-25 14:54] LABS: FERRITIN 986 ng/mL (26-388)
[2021-11-25] MEDS ORDERED: VANCOMYCIN IV 500 MG in IV DEXTROSE 5% 100 ML IV ONE (16:00)
[2021-11-25] MEDS ORDERED: VALACYCLOVIR HCL 500 MG TABLET PO ONE (16:00)
--- NOTE | 2021-11-25 19:30 | NUR ---
PATIENT IN BED ASLEEP ,NON VERBAL NO SPONTANEOUS EYE OPENEING UNABLE TO FOLLOW COMMANDS BUT WITHDRAWS TO PAIN AND ON AND OFF MOVED BILATERAL LOWER FOOT SLOW AND WEAK. PATIENT ON LEVOPHED DRIP FOR BP SUPPORT TO KEEP SBP >90 MM/HG , RECEIVED AT 0.11 MCG/KG/MIN . ON ROOM AIR NO RESPIRATORY DISTRESS NOTES RR 18 TO 20 SATURATION 98 %. LEFT NARE NGT ON TF NEPRO AT 20 ML /HR IN PROGRESS GOAL IS 55 ML, WILL INCREASE TOLERATED . F/C TO BSD WITH YELLOWISH URINARY OUTPUT .
--- NOTE | 2021-11-25 19:31 | NUR ---
911 OPERATOR AT B/S PATIENT IS SCHEDULE FOR HEMODIALYSIS .
--- NOTE | 2021-11-25 20:30 | NUR ---
CALLED PHARMACY SPOKED WITH MANUEL PHARMACIST INFORMED MANUEL THAT THERE IS A VANCOMYCIN SCHEDULE AFTER HEMODIALYSIS , PER MANUEL VANCOMYCIN WAS DISCONTINUED .
[2021-11-25] MEDS ORDERED: FAMOTIDINE. 20 MG/2 ML VIAL IV ONE (21:37)
[2021-11-25] MEDS: FAMOTIDINE. 20 MG/2 ML VIAL IV SCH (21:38)
--- NOTE | 2021-11-25 22:30 | NUR ---
PATIENT TOLERATED HD WITH TOTAL FLUID REMOVAL OF 2000 ML.
--- NOTE | 2021-11-25 22:30 | NUR ---
JALEN LOPEZ CALLED HE SAID HIS AUNT JUST CALLED HIM AND NOTIFIED THAT HIW DAD IN THE HOSPITAL . JALEN SAID HE GOT LOST TRACK OF THE DAD ,GIVEN INFORMATION ABOUT THE PATIENT AND QUESTIONS ANSWERED SON TEL NO.[phone] .
--- NOTE | 2021-11-25 22:42 | NUR ---
1 UNIT OF PLATELET STARTED BLOOD VERIFIED WITH ANOTHER RN .PTS. PLATELET LOW 18. FOLLOW BLOOD TRANSFUSION PROTOCOL .
[2021-11-26] VITALS (83 sets, daily range): BP systolic 84–138; BP diastolic 32–97
--- NOTE | 2021-11-26 | NUR ---
AFEBRILE TEMP 98.9 AXILLARY , LEVOPHED DRIP STILL IN PROGRESS TO KEEP BP >90 MM/HG.
--- NOTE | 2021-11-26 00:45 | NUR ---
URINE COLLECTED AND SEND FOR URINALYSIS ,CREATININE ,EOSINOPHILS ,TOTAL PROTEIN ,SODIUM ,
[2021-11-26] MEDS: NOREPINEPHRINE BITARTRATE 8 MG in IV NORMAL SALINE 242 ML IV PRN ×2 (01:17→19:51)
[2021-11-26 01:58] LABS: *BILIRUBIN,URIN NEGATIVE (NEGATIVE); *BLOOD, URINE 3+ (NEGATIVE); *CLARITY,URINE CLOUDY (CLEAR); *COLOR,URINE YELLOW (YELLOW); *KETONES,URINE NEGATIVE (NEGATIVE); *UROBILINOGEN,URINE 0.2 E.U./dl (NORMAL); LEUKOCYTE ESTERASE ,URINE NEGATIVE (NEGATIVE); NITRITE, URINE NEGATIVE (NEGATIVE); UGLUCOSE NEGATIVE (NEGATIVE)
--- NOTE | 2021-11-26 02:00 | NUR ---
TURNED AND REPOSITION PATIENT ,REMAINS NON VERBAL , SLEEPING NO S/S OF PAIN .
[2021-11-26 02:04] LABS: *CREATININE,URINE 92.6 mg/dL (30-125); *URINE TOTAL PROTEIN RANDOM 169.6 mg/dL (<150/24HR)
[2021-11-26 02:09] LABS: RBC,URINE 50-80 /HPF (0-3)
[2021-11-26 02:10] LABS: BACTERIA,URINE NONE SEEN /HPF (NONE SEEN); SQUAMOUS EPITHELIAL CELL,UR FEW /HPF (NONE SEEN); WBC,URINE 0-3 /HPF (0-3)
--- NOTE | 2021-11-26 04:00 | NUR ---
AM CARE DONE ,BATH PATIENT ,CHANGED SOILED LINENS AND GOWN,HAMILTON CARE DONE AND ORAL CARE DONE .
[2021-11-26 04:55] LABS: MEAN CORPUSCULAR HEMOGLOBIN 32.5 uug (23.8-33.4); MEAN CORPUSCULAR VOLUME 93.7 fL (73.0-96.2)
[2021-11-26 05:07] LABS: ALANINE AMINOTRANSFERASE 289 U/L (16-63); ALKALINE PHOSPHATASE 66 U/L (50-136); ASPARTATE AMINOTRANSFERASE 159 U/L (15-37); BILIRUBIN,TOTAL 0.7 mg/dL (0.2-1.0); CARBON DIOXIDE 27 mmol/L (21-32); CHLORIDE 104 mmol/L (98-107); GLUCOSE 121 mg/dL (74-106); MAGNESIUM 2.2 mg/dL (1.8-2.4); POTASSIUM 3.5 mmol/L (3.5-5.1); TOTAL PROTEIN, SERUM 5.1 g/dL (6.4-8.2); UREA NITROGEN, BLOOD 76 mg/dL (7-18)
[2021-11-26 05:10] LABS: PLATELET COUNT (AUTO) 33 K/uL (152-348)
[2021-11-26] MEDS ORDERED: MIDODRINE HCL 2.5 MG TABLET PO SCH (08:00)
[2021-11-26] MEDS: THIAMINE HCL 100 MG TABLET NG SCH (09:00)
[2021-11-26] MEDS ORDERED: FOLIC ACID 1 MG TABLET ONE (09:09)
[2021-11-26] MEDS ORDERED: MODAFINIL 100 MG TABLET ONE (09:10)
[2021-11-26] MEDS ORDERED: FAMOTIDINE. 20 MG/2 ML VIAL IV ONE ×2 (09:11→19:53)
[2021-11-26] MEDS: FOLIC ACID 1 MG TABLET NG SCH (09:16)
[2021-11-26] MEDS: MODAFINIL 100 MG TABLET NG SCH (09:16)
[2021-11-26] MEDS: FAMOTIDINE. 20 MG/2 ML VIAL IV SCH ×2 (09:16→20:01)
[2021-11-26] MEDS ORDERED: CYANOCOBALAMIN 1,000 MCG TABLET ONE (09:19)
[2021-11-26] MEDS: CEFTRIAXONE 1 G in IV DEXTROSE 5% 50 ML IV SCH (14:03)
[2021-11-26] MEDS ORDERED: MIDODRINE HCL 5 MG TABLET ONE ×2 (14:07→19:53)
[2021-11-26] MEDS: MIDODRINE HCL 5 MG TABLET PO SCH ×2 (14:09→21:34)
[2021-11-26] MEDS ORDERED: ACETAMINOPHEN 325 MG TABLET ONE (14:46)
[2021-11-26] MEDS: ACETAMINOPHEN 325 MG TABLET PO PRN (14:48)
--- NOTE | 2021-11-26 15:29 | NUR ---
Contacted Dr. Brown about patients thick sputum and coarse lung sounds, received orders fro mucomyst 2ml 20% with 0.5mg atrovent today
[2021-11-26] MEDS ORDERED: ACETYLCYSTEINE 20% 800 MG/4 ML VIAL ONE ×2 (15:39→19:25)
[2021-11-26] MEDS ORDERED: IPRATROPIUM BROMIDE 0.5 MG/2.5 ML NEBU ONE ×2 (15:40→19:27)
[2021-11-26] MEDS: ACETYLCYSTEINE 20% 800 MG/4 ML VIAL NEB SCH ×2 (15:42→23:17)
[2021-11-26] MEDS: IPRATROPIUM BROMIDE 0.5 MG/2.5 ML NEBU NEB PRN ×2 (15:42→23:17)
--- NOTE | 2021-11-26 17:14 | NUR ---
Patient had a large loose stool.
[2021-11-26] MEDS: CADEXOMER IODINE 40 GM TUBE TOP SCH (17:32)
[2021-11-26] MEDS: ARGININE/GLUTAMINE/CALCIUM BMB 1 EACH POWD.PACK NG SCH (17:32)
--- NOTE | 2021-11-26 19:30 | NUR ---
ROUNDS MADE PATIENT IN BED ,ASLEEP ,BREATHING EVEN AND UNLABORED ON ROOM AIR SATURATION 98% RR 15 TO 18. LEVOPHED DRIP IN PROGRESS AT 0.08 MCG/KG/MIN VIA THE LEFT UPPER ARM PICCLINE TO KEEP SBP >90 MM/HG, V/S DONE 215 MINUTES . TF IN PROGRESS ON NEPRO AT 50 ML/HR VIA THE LEFT NARE NFT ,GOAL IS 55 ML X22 HOURS WITH CONTINUE TO INCREASE TOLERATED . HAMILTON CATHETER TO BSD WITH YELLOWISH URINE . RIGHT FEMORAL NAEEM CATHETER IN PLACED CDI.
--- NOTE | 2021-11-26 22:00 | NUR ---
TURNED AND REPOSITION PATIENT OFFLOADED BACK WITH PILLOWS AND BILATERAL LOWER EXTREMITIES ELEVATED WITH PILLOWS ,HEELS OFF BED.HOB UP .
--- NOTE | 2021-11-26 23:00 | NUR ---
WEANING OFF LEVOPHED DRIP SEE SPREADSHEET.
--- NOTE | 2021-11-26 23:17 | NUR ---
RESPIRATORY THERAPIST CAME AND GAVE PATIENT BREATHING TREATMENT . SUCTION PATIENT VIA THE NASO AND KERIA PHARYNGEAL WITH THICK SECRETIONS ,SINGH TO BLOOD TINGEH IN COLOR .ORAL CARE DONE .
[2021-11-27] VITALS (41 sets, daily range): BP systolic 86–156; BP diastolic 54–85
--- NOTE | 2021-11-27 | NUR ---
CHECKED TOLERATING TUBE FEEDINGS RESIDUAL 10 ML ,INCREASE TF RATE TO 55 ML/HR .
--- NOTE | 2021-11-27 02:30 | NUR ---
TURNED AND REPOSITION PATIENT . OFFLOADED BACK WITH PILLOWS .
--- NOTE | 2021-11-27 04:00 | NUR ---
WEATHER FORECASTER AT B/S FOR AM LABS .
--- NOTE | 2021-11-27 04:30 | NUR ---
INCONTINENT OF STOOL ,SOFT TO LOOSE BROWNISH STOOL LARGE IN AMT SEND STOOL SAMPLE FOR OCCULT BLOOD.BATH PATIENT CHANGED SOILED LINENS AND GOWN . APPLIED Z GUARD TO SACRAL AREA AND COVER WITH MEPILEX . CHANGED WOUND DRESSING TO BILATERAL LOWER LEG AND FOLLOW WOUND CARE TREATMENT .
--- NOTE | 2021-11-27 05:00 | NUR ---
KEPT LEVOPHED DRIP AT 0.02 MCG/KG/MIN BP DROP TO 89/57,WILL CONTINUE TO MONITOR .
[2021-11-27 05:16] LABS: MEAN CORPUSCULAR HEMOGLOBIN 32.1 uug (23.8-33.4)
[2021-11-27 05:17] LABS: HEMATOCRIT 37.1 % (36.7-47.1); MEAN CORPUSCULAR VOLUME 94.5 fL (73.0-96.2); PLATELET COUNT (AUTO) 51 K/uL (152-348)
[2021-11-27 05:23] LABS: ALANINE AMINOTRANSFERASE 215 U/L (16-63); ALKALINE PHOSPHATASE 77 U/L (50-136); ASPARTATE AMINOTRANSFERASE 75 U/L (15-37); BILIRUBIN,TOTAL 0.5 mg/dL (0.2-1.0); CARBON DIOXIDE 29 mmol/L (21-32); CHLORIDE 102 mmol/L (98-107); CREATININE 5.8 mg/dL (0.6-1.3); GLUCOSE 144 mg/dL (74-106); MAGNESIUM 2.5 mg/dL (1.8-2.4); POTASSIUM 3.6 mmol/L (3.5-5.1); TOTAL PROTEIN, SERUM 5.8 g/dL (6.4-8.2)
[2021-11-27 05:29] LABS: UREA NITROGEN, BLOOD 98 mg/dL (7-18)
[2021-11-27 05:34] LABS: *OCCULT BLOOD STOOL POSITIVE (NEGATIVE)
[2021-11-27] MEDS ORDERED: MIDODRINE HCL 5 MG TABLET ONE ×3 (06:25→21:18)
[2021-11-27] MEDS: MIDODRINE HCL 5 MG TABLET PO SCH ×3 (06:27→21:20)
[2021-11-27] MEDS: REMEDY ESSENTIAL ZINC PASTE 113 GM TP PRN (06:33)
[2021-11-27] MEDS ORDERED: FOLIC ACID 1 MG TABLET ONE (08:03)
[2021-11-27] MEDS ORDERED: THIAMINE HCL 100 MG TABLET ONE (08:04)
[2021-11-27] MEDS ORDERED: FAMOTIDINE. 20 MG/2 ML VIAL IV ONE (08:04)
[2021-11-27] MEDS ORDERED: MODAFINIL 100 MG TABLET ONE (08:04)
[2021-11-27] MEDS: MODAFINIL 100 MG TABLET NG SCH (08:07)
[2021-11-27] MEDS: FAMOTIDINE. 20 MG/2 ML VIAL IV SCH (08:07)
[2021-11-27] MEDS: THIAMINE HCL 100 MG TABLET NG SCH (08:07)
[2021-11-27] MEDS: FOLIC ACID 1 MG TABLET NG SCH (08:07)
[2021-11-27] MEDS: ARGININE/GLUTAMINE/CALCIUM BMB 1 EACH POWD.PACK NG SCH ×2 (08:08→17:00)
[2021-11-27] MEDS: CADEXOMER IODINE 40 GM TUBE TOP SCH (08:09)
--- NOTE | 2021-11-27 09:17 | NUR ---
Deep suctionede patient, thick sputum with blood clots noted.
--- NOTE | 2021-11-27 09:45 | NUR ---
patient is having apneic spells for 10-15 mseconds and then tachypnea. Desaturations noted during apneic episodes to 70's and regains oxygen saturation afterwards.
--- NOTE | 2021-11-27 10:14 | NUR ---
Real marie at bedside to evaluate patient. Received order for stat abg.
--- NOTE | 2021-11-27 10:30 | NUR ---
Patient taken to CT for scan of head.
[2021-11-27] MEDS ORDERED: MANNITOL 25% 12.5 G/50 ML VIAL IV ONE (12:00)
--- NOTE | 2021-11-27 13:27 | NUR ---
Discussed administration of Mannitol with pharmacist and Provider in detail uinder renal impairment. Both agreed that it was appropriate to give at this time
--- NOTE | 2021-11-27 14:00 | NUR ---
Patient has started to move hands and breathing has improved without grunting. Even and non labored. Patient also responsive to pain and moving lower extremities more. Notified Real Prado.
[2021-11-27] MEDS: CEFTRIAXONE 1 G in IV DEXTROSE 5% 50 ML IV SCH (14:44)
--- NOTE | 2021-11-27 15:58 | NUR ---
Order sent to laboratory for stat CMP on hour post administration of Mannitol.
--- NOTE | 2021-11-27 16:00 | NUR ---
Patient given full bed bath and replaced wound dressings. Patient appears to be in pain with grimacing occasionally and withdrawing legs. Flexiseal is leaking, placed zguard on sacrum and posterior scrotum.
[2021-11-27 16:28] LABS: ALANINE AMINOTRANSFERASE 188 U/L (16-63); ALKALINE PHOSPHATASE 75 U/L (50-136); ASPARTATE AMINOTRANSFERASE 62 U/L (15-37); BILIRUBIN,TOTAL 0.4 mg/dL (0.2-1.0); CARBON DIOXIDE 27 mmol/L (21-32); CHLORIDE 102 mmol/L (98-107); CREATININE 5.7 mg/dL (0.6-1.3); GLUCOSE 144 mg/dL (74-106); MAGNESIUM 2.5 mg/dL (1.8-2.4); PHOSPHOROUS 5.1 mg/dL (2.5-4.9); POTASSIUM 3.6 mmol/L (3.5-5.1)
[2021-11-27 16:41] LABS: UREA NITROGEN, BLOOD 109 mg/dL (7-18)
[2021-11-27] MEDS ORDERED: MORPHINE SULFATE 4 MG/1 ML DISP.SYRIN ONE (18:26)
[2021-11-27] MEDS: MORPHINE SULFATE 4 MG/1 ML DISP.SYRIN IV PRN (18:28)
[2021-11-27] MEDS ORDERED: ALBUMIN HUMAN 25% 100 ML IV ONE (19:15)
--- NOTE | 2021-11-27 19:20 | NUR ---
REPORT RECEIVED FROM DAY SHIFT RN BRITTON .PATIENT S/P STROKE AND HAD A CT OF THE HEAD DONE AND SEEN BY NEUROLOGIST .NO RESPIRATORY DISTRESS NOTED BREATHING EVEN AND UNLABORED ON N/C OXYGEN AT 2 LITERS RR 20 SATURATION 100%. OFF LEVOPHED DRIP .CONTINUE TO MONITOR V/S. TF IN PROGRESS ON NEPRO AT 55 ML/HR . F/C TO BSD WITH YELLOWISH URINE .
--- NOTE | 2021-11-27 19:45 | NUR ---
DIALYSIS STARTED , CONTINUE TO MONIOTR V/S.
--- NOTE | 2021-11-27 19:58 | NUR ---
CONTRACTOR GENERAL ENGINEERING AT B/S PATIENT FOR HEMODIALYSIS.
--- NOTE | 2021-11-27 21:20 | NUR ---
DUE MEDICATION GIVEN CRUSHED MEDICATION AND GIVEN VIA THE NGT,CHECKED TF RESIDUAL VERY MINIMAL 10 ML PATIENT TOLERATING TF .
--- NOTE | 2021-11-27 22:30 | NUR ---
TOLERATED HD 1000 ML/FLUID REMOVAL .
[2021-11-27] MEDS ORDERED: IPRATROPIUM BROMIDE 0.5 MG/2.5 ML NEBU ONE (22:52)
[2021-11-27] MEDS: IPRATROPIUM BROMIDE 0.5 MG/2.5 ML NEBU NEB PRN (22:54)
--- NOTE | 2021-11-27 22:54 | NUR ---
RESPIRATORY THERAPIST AT B/S GAVE PATIENT BREATHING TREATMENT. BREATHING TREATMENT COMPLETED. SUCTION PATIENT VIA KEIRA-NASO PHARYNGEAL AND ORAL CARE DONE
--- NOTE | 2021-11-27 23:00 | NUR ---
WITH ANOTHER RN TURNED AND REPOSITION PATIENT ,BACK CARE DONE LOTION APPLIED TO BACK AND SACRAL AREA ,OFFLOADED BACK WITH PILLOW AND ELEVATED BILATERAL UPPER AND LOWER EXTREMITIES WITH PILLOWS . HOB UP .
[2021-11-28] VITALS (22 sets, daily range): BP systolic 90–120; BP diastolic 55–65
[2021-11-28] MEDS ORDERED: MANNITOL 25% 12.5 G/50 ML VIAL IV ONE
[2021-11-28 00:04] LABS: ABG BASE EXCESS -1.1 mmol/L; ABG PCO2 27.9 mmHg (35.0-45.0); ABG PH 7.495 (7.350-7.450); ABG SITE RIGHT RADIAL; ABG TOTAL HEMOGLOBIN 12.4 G/dL (13.5-18.0); COHb 0.3 % (0.5-1.5); MetHb 0.1 % (0.0-1.5); O2Hb 92.7 % (94.0-97.0); VENT MODE Room Air
--- NOTE | 2021-11-28 04:00 | NUR ---
AM CARE DONE ,PERINEAL AND HAMILTON CARE DONE . CHANGED SOILED LINENS AND GOWNS ,APPLIED Z GUARD TO SACRAL AND BILATERAL GROIN ,PLACED MEPILEX TO SACRAL AREA. HEELS OFFLOADED WITH PILLOWS . SUCTION PATIENT VIA MOUTH AND ORAL CARE DONE .
[2021-11-28] MEDS ORDERED: MIDODRINE HCL 5 MG TABLET ONE ×3 (05:36→21:46)
[2021-11-28] MEDS: MIDODRINE HCL 5 MG TABLET PO SCH ×3 (05:49→21:50)
[2021-11-28 06:14] LABS: HEMATOCRIT 30.4 % (36.7-47.1); MEAN CORPUSCULAR HEMOGLOBIN 32.3 uug (23.8-33.4); MEAN CORPUSCULAR VOLUME 95.1 fL (73.0-96.2)
[2021-11-28 06:36] LABS: ALANINE AMINOTRANSFERASE 136 U/L (16-63); ALKALINE PHOSPHATASE 62 U/L (50-136); ASPARTATE AMINOTRANSFERASE 44 U/L (15-37); BILIRUBIN,TOTAL 0.4 mg/dL (0.2-1.0); CARBON DIOXIDE 28 mmol/L (21-32); CHLORIDE 103 mmol/L (98-107); CREATININE 4.2 mg/dL (0.6-1.3); GLUCOSE 124 mg/dL (74-106); MAGNESIUM 2.2 mg/dL (1.8-2.4); POTASSIUM 3.6 mmol/L (3.5-5.1); TOTAL PROTEIN, SERUM 5.7 g/dL (6.4-8.2)
[2021-11-28 07:32] LABS: UREA NITROGEN, BLOOD 83 mg/dL (7-18)
[2021-11-28 07:49] LABS: PLATELET COUNT (AUTO) 47 K/uL (152-348)
--- NOTE | 2021-11-28 07:49 | NUR ---
CRITICAL LAB: PLT 47. made aware. No new orders. Will continue to monitor.
--- NOTE | 2021-11-28 08:00 | NUR ---
Received patient laying in bed. Non verbal and response to deep painful stimuli only. On O2 2L NC. TELE Afib controlled at 86 HR. NGT on the left nostril remains in place. PICC line on the left upper arm remains patent and intact. group home assessment done, many skin issues noted with dressings C/D/I. Upper and lower extremities is flaccid. Refer to assessment or chart for wound description. Rectal tube in place with about 100 cc of dark liquid stool. Reese cath in place draining clear and yellow urine. Safety initiated, bed in low and locked position.
[2021-11-28] MEDS ORDERED: FOLIC ACID 1 MG TABLET ONE (08:11)
[2021-11-28] MEDS ORDERED: MODAFINIL 100 MG TABLET ONE (08:11)
[2021-11-28] MEDS ORDERED: THIAMINE HCL 100 MG TABLET ONE (08:12)
[2021-11-28] MEDS ORDERED: FAMOTIDINE. 20 MG/2 ML VIAL IV ONE (08:12)
--- NOTE | 2021-11-28 08:15 | NUR ---
Oral care done, absent gag reflex but (+) cough. Pupils are sluggish on both eyes. Will continue to monitor.
[2021-11-28] MEDS: FOLIC ACID 1 MG TABLET NG SCH (08:20)
[2021-11-28] MEDS: THIAMINE HCL 100 MG TABLET NG SCH (08:20)
[2021-11-28] MEDS: ARGININE/GLUTAMINE/CALCIUM BMB 1 EACH POWD.PACK NG SCH ×2 (08:20→17:02)
[2021-11-28] MEDS: MODAFINIL 100 MG TABLET NG SCH (08:20)
[2021-11-28] MEDS: CADEXOMER IODINE 40 GM TUBE TOP SCH (08:21)
[2021-11-28] MEDS ORDERED: FAMOTIDINE. 20 MG/2 ML VIAL IV SCH (09:00)
[2021-11-28 09:13] LABS: BAND % (MANUAL) 3 % (0-10); EOSINOPHILS % (MANUAL) 4 % (0-8); LYMPHOCYTES % (MANUAL) 25 % (20-40); NEUTROPHILS % (MANUAL) 68 % (42-75)
--- NOTE | 2021-11-28 09:40 | NUR ---
ID BELT CUTTER is at bedside. Will continue to monitor.
--- NOTE | 2021-11-28 11:43 | NUR ---
Wound care provided. Will continue to monitor.
--- NOTE | 2021-11-28 13:00 | NUR ---
ONC SOCIAL SECRETARY AND HOSPITALIST AT BEDSIDE. DISCUSSED PLAN OF CARE. NEURO ASSESSMENT DONE, PT REMAINS OBTUNDED UNABLE TO RESPOND TO PAINFUL STIMULI. RIGHT PUPIL IS MORE SLUGGISH THAN THE LEFT. VSS. OFF LEVO. WILL CONTINUE TO MONITOR.
[2021-11-28] MEDS: CEFTRIAXONE 1 G in IV DEXTROSE 5% 50 ML IV SCH (13:20)
--- NOTE | 2021-11-28 19:00 | NUR ---
Received report. Patient is nonverbal and responsive to deep painful stimuli. On NC @1LPM, O2 sat 100%. Afib controlled on the monitor, 90 bpm. NG tube at left nostril, TF Nepro @55mls/hr, no gastric residual noted. ILEANA PICC line with IVF NS @TKO infusing well. ILEANA 20G and patent and intact. No erythema, bleeding noted. Body assessment done with many skin issues noted, dressings c/d/i. R femoral nimesh catheter for HD. Rectal tube and alston catheter in place. Will continue to monitor closely. Addendum: 11/29/21 at 0140 by Blanche Prince RN Wound photos taken and placed to chart.
--- NOTE | 2021-11-28 20:00 | NUR ---
Oral care and suctioning done. Grimacing noted upon suctioning. Turn and reposition every 2 hours.
--- NOTE | 2021-11-28 21:00 | NUR ---
Nursing Mechanical Systems Designer Jules aware of patient's HD for tomorrow.
[2021-11-28] MEDS: REMEDY ESSENTIAL ZINC PASTE 113 GM TP PRN (21:48)
[2021-11-29] VITALS (13 sets, daily range): BP systolic 93–128; BP diastolic 55–74
[2021-11-29 04:53] LABS: PLATELET COUNT (AUTO) 72 K/uL (152-348)
[2021-11-29 05:03] LABS: ALANINE AMINOTRANSFERASE 110 U/L (16-63); ALKALINE PHOSPHATASE 62 U/L (50-136); ASPARTATE AMINOTRANSFERASE 42 U/L (15-37); BILIRUBIN,TOTAL 0.4 mg/dL (0.2-1.0); CARBON DIOXIDE 29 mmol/L (21-32); CHLORIDE 105 mmol/L (98-107); CREATININE 4.7 mg/dL (0.6-1.3); GLUCOSE 141 mg/dL (74-106); MAGNESIUM 2.1 mg/dL (1.8-2.4); POTASSIUM 3.8 mmol/L (3.5-5.1); TOTAL PROTEIN, SERUM 6.2 g/dL (6.4-8.2)
[2021-11-29 05:07] LABS: HEMATOCRIT 31.7 % (36.7-47.1); MEAN CORPUSCULAR HEMOGLOBIN 32.1 uug (23.8-33.4); MEAN CORPUSCULAR VOLUME 94.9 fL (73.0-96.2)
[2021-11-29 05:20] LABS: UREA NITROGEN, BLOOD 97 mg/dL (7-18)
--- NOTE | 2021-11-29 05:42 | NUR ---
Called [facility] re: critical lab result and spoke with Maxine Mccray. Per Shazia, no new orders.
[2021-11-29] MEDS ORDERED: MIDODRINE HCL 5 MG TABLET ONE (05:58)
--- NOTE | 2021-11-29 06:00 | NUR ---
TF Nepro off [id number].
[2021-11-29] MEDS: MIDODRINE HCL 5 MG TABLET PO SCH ×3 (06:24→21:02)
[2021-11-29] MEDS ORDERED: THIAMINE HCL 100 MG TABLET ONE (11:21)
[2021-11-29] MEDS ORDERED: FOLIC ACID 1 MG TABLET ONE (11:21)
[2021-11-29] MEDS ORDERED: MODAFINIL 100 MG TABLET ONE (11:21)
[2021-11-29] MEDS: FOLIC ACID 1 MG TABLET NG SCH (11:23)
[2021-11-29] MEDS: MODAFINIL 100 MG TABLET NG SCH (11:23)
[2021-11-29] MEDS: THIAMINE HCL 100 MG TABLET NG SCH (11:23)
[2021-11-29] MEDS: ARGININE/GLUTAMINE/CALCIUM BMB 1 EACH POWD.PACK NG SCH ×2 (11:23→18:59)
[2021-11-29] MEDS: CADEXOMER IODINE 40 GM TUBE TOP SCH (11:24)
[2021-11-29] MEDS: CEFTRIAXONE 2 G in IV DEXTROSE 5% 100 ML IV SCH (14:38)
--- NOTE | 2021-11-29 19:39 | NUR ---
Patient tolerated dialysis well today with 1L removal. Rectal tube in place and has 300ml stool output. Patient had 500ml urine out put today, wounds dressed and tolerated well. Report called to Aleah. Patient to be transferred to 3rd floor.
[2021-11-29 19:52] LABS: NEUTROPHILS % (MANUAL) 0 % (42-75)
--- NOTE | 2021-11-29 20:00 | NUR ---
Transferred patient from transition to room 322. Patient appears lethargic, non-verbal, opens eyes slightly to tactile stimuli. In no apparent distress. On O2 at 1LPM via NC in place. O2 sat at 100%. NGT to left nares intact and patent. NGT feeding ongoing. HOB kept elevated. PICC line on left upper arm intact and patent. TKO. Dialysis cath on right groin area. Reese catheter intact and draining via gravity. Rectal tube in place. Isolation precaution observed. Safety measure initiated and call light within reached. Continue to monitor.
[2021-11-30] VITALS (7 sets, daily range): BP systolic 101–126; BP diastolic 51–66
[2021-11-30] MEDS: MIDODRINE HCL 5 MG TABLET PO SCH ×3 (05:06→22:25)
--- NOTE | 2021-11-30 06:17 | NUR ---
Patient appears calm and comfortable. In no acute distress. Controlled A. fib on tele with PVC, HR of 93/min. Tolerated NGT feeding and water flushes well. Remains on O2 at 1LPM via NC. Sating 100%. Reese catheter intact and draining yellow urine output. Rectal tube intact with liquid stool. Wound dressing remains intact, clean and dry. Isolation precaution maintained.
[2021-11-30 06:24] LABS: HEMATOCRIT 29.3 % (36.7-47.1); MEAN CORPUSCULAR HEMOGLOBIN 32.4 uug (23.8-33.4); MEAN CORPUSCULAR VOLUME 95.6 fL (73.0-96.2); PLATELET COUNT (AUTO) 87 K/uL (152-348)
[2021-11-30 06:41] LABS: ALANINE AMINOTRANSFERASE 82 U/L (16-63); ALKALINE PHOSPHATASE 60 U/L (50-136); ASPARTATE AMINOTRANSFERASE 36 U/L (15-37); BILIRUBIN,TOTAL 0.5 mg/dL (0.2-1.0); CARBON DIOXIDE 29 mmol/L (21-32); CHLORIDE 104 mmol/L (98-107); CREATININE 3.5 mg/dL (0.6-1.3); GLUCOSE 129 mg/dL (74-106); PHOSPHOROUS 4.9 mg/dL (2.5-4.9); POTASSIUM 3.9 mmol/L (3.5-5.1); TOTAL PROTEIN, SERUM 6.5 g/dL (6.4-8.2); UREA NITROGEN, BLOOD 71 mg/dL (7-18)
[2021-11-30 07:03] LABS: NEUTROPHILS % (MANUAL) 0 % (42-75)
--- NOTE | 2021-11-30 08:00 | NUR ---
AWAKE ALERT AND MOANS WHEN TURN TO SIDES NO SS OF PAIN OR DISTRESS WITH 1L NC SATURATING 95%. REMAINS AFIB ON MONITOR
[2021-11-30] MEDS: FAMOTIDINE 20 MG TABLET NG SCH (08:35)
[2021-11-30] MEDS: FOLIC ACID 1 MG TABLET NG SCH (08:35)
[2021-11-30] MEDS: MODAFINIL 100 MG TABLET NG SCH (08:35)
[2021-11-30] MEDS: THIAMINE HCL 100 MG TABLET NG SCH (08:35)
[2021-11-30] MEDS: CADEXOMER IODINE 40 GM TUBE TOP SCH (08:36)
[2021-11-30] MEDS: ARGININE/GLUTAMINE/CALCIUM BMB 1 EACH POWD.PACK NG SCH ×2 (08:42→16:14)
--- NOTE | 2021-11-30 12:00 | NUR ---
NO ACUTE CHANGE FROM MORNING ASSESSMENT. SEEN BY HOSPITALIST FOR FOLLOW-UP SEE NOTES
[2021-11-30 12:35] LABS: ABG BASE EXCESS 1.9 mmol/L; ABG HCO3 24.4 mmol/L; ABG PCO2 31.3 mmHg (35.0-45.0); ABG PO2 78.6 mmHg (75.0-100.0); ABG SITE RIGHT RADIAL; ABG TOTAL HEMOGLOBIN 11.7 G/dL (13.5-18.0); COHb 0.6 % (0.5-1.5); MetHb 0.1 % (0.0-1.5); O2Hb 94.9 % (94.0-97.0); VENT MODE Nasal Cannula
[2021-11-30] MEDS: CEFTRIAXONE 2 G in IV DEXTROSE 5% 100 ML IV SCH (14:38)
--- NOTE | 2021-11-30 16:38 | NUR ---
NO ACUTE CHANGE FROM MORNING ASSESSMENT CONTINUE CURRENT TX PLAN.
[2021-11-30] MEDS: NEPRO 1000 ML NG PRN (18:30)
--- NOTE | 2021-11-30 20:00 | NUR ---
rounds made patient in bed ,with draws to light pain ,non verbal, doesn't follow commands ,lethargic.no s/s of pain .no respiratory distress noted.breathing even and unlabored tolerating 02 nasal cannula at 1 liter/min . saturation 98% rr 20. tf via the left nare Nepro at 55 ml/hr . Reese catheter to bsd . afib on the heart monitor rate 91.
--- NOTE | 2021-11-30 21:30 | NUR ---
turned and reposition patient offloaded back with pillows . hob up and checked tube feeds residual very minimal 10 ml . tolerating tf .
--- NOTE | 2021-11-30 22:25 | NUR ---
due medication given and flused ngt , patient tolerating tf nepro at 55 ml/hr x22 hours .
[2021-12-01] VITALS: BP 138/55
--- NOTE | 2021-12-01 00:30 | NUR ---
photo taken on all skin with wounds ( photo -Monday)placed in patient chart . wound dressing done and follow wound care treatment recommendation . irrigated rectal tube noted with stool leaking from the rectal area . bath patient changed soiled linens and gown . Reese care perineal care done . z guard applied to bilateral groin ,sacral -buttocks area . turned and reposition offloaded lower bilateral extremities with pillows and heels off bed . suction patient via mouth and oral care .
--- NOTE | 2021-12-01 01:15 | NUR ---
low grade temp 100.0 F given Tylenol prn . see emar .
[2021-12-01] MEDS: ACETAMINOPHEN 325 MG TABLET PO PRN ×2 (01:19→21:20)
[2021-12-01] MEDS: REMEDY ESSENTIAL ZINC PASTE 113 GM TP PRN (02:50)
[2021-12-01 04:00] VITALS: BP 126/65
[2021-12-01] MEDS: MIDODRINE HCL 5 MG TABLET PO SCH ×3 (05:29→21:19)
[2021-12-01 07:13] LABS: HEMATOCRIT 28.4 % (36.7-47.1); MEAN CORPUSCULAR VOLUME 95.5 fL (73.0-96.2); PLATELET COUNT (AUTO) 110 K/uL (152-348)
[2021-12-01 07:27] LABS: ALANINE AMINOTRANSFERASE 68 U/L (16-63); ALKALINE PHOSPHATASE 55 U/L (50-136); ASPARTATE AMINOTRANSFERASE 34 U/L (15-37); BILIRUBIN,TOTAL 0.3 mg/dL (0.2-1.0); CARBON DIOXIDE 30 mmol/L (21-32); CHLORIDE 108 mmol/L (98-107); CREATININE 3.5 mg/dL (0.6-1.3); GLUCOSE 121 mg/dL (74-106); MAGNESIUM 2.2 mg/dL (1.8-2.4); PHOSPHOROUS 5.3 mg/dL (2.5-4.9); TOTAL PROTEIN, SERUM 6.9 g/dL (6.4-8.2)
[2021-12-01 07:32] LABS: UREA NITROGEN, BLOOD 80 mg/dL (7-18)
--- NOTE | 2021-12-01 08:00 | NUR ---
IN BED WITH EYES CLOSE MOANS AND OPENS EYES TO TOUCH, NO SIGNS OF DISTRESS ON 1L NC SATURATING 93-95%
--- NOTE | 2021-12-01 09:00 | NUR ---
SEEN BY DRIER OPERATOR HEAD FOR FOLLOW-UP NO NEW ORDERS, STARTED FEEDING AT 55 MLS/HR TOLERATING WELL O/MLS RESIDUAL
[2021-12-01] MEDS: THIAMINE HCL 100 MG TABLET NG SCH (09:08)
[2021-12-01] MEDS: FOLIC ACID 1 MG TABLET NG SCH (09:08)
[2021-12-01] MEDS: FAMOTIDINE 20 MG TABLET NG SCH (09:08)
[2021-12-01] MEDS: MODAFINIL 100 MG TABLET NG SCH (09:08)
[2021-12-01] MEDS: CADEXOMER IODINE 40 GM TUBE TOP SCH (09:09)
[2021-12-01] MEDS: ARGININE/GLUTAMINE/CALCIUM BMB 1 EACH POWD.PACK NG SCH ×2 (09:09→17:12)
--- NOTE | 2021-12-01 09:20 | NUR ---
HEMODIALYSIS STARTED AT BEDSIDE CLOSELY MONITORED Addendum: 12/01/21 at 1831 by LIANG COLEMAN RN ERROR
--- NOTE | 2021-12-01 10:00 | NUR ---
SEEN BY HOSPITALIST SEE NOTES
[2021-12-01] MEDS: NEPRO 1000 ML NG PRN (10:04)
[2021-12-01 11:45] VITALS: BP 136/69
--- NOTE | 2021-12-01 14:16 | NUR ---
midorine not given bp 136/69
[2021-12-01] MEDS: CEFTRIAXONE 2 G in IV DEXTROSE 5% 100 ML IV SCH (14:31)
[2021-12-01 16:00] VITALS: BP 129/62
--- NOTE | 2021-12-01 16:15 | NUR ---
HEMODIALYSIS STARTED AT BEDSIDE CLOSELY MONITORED
--- NOTE | 2021-12-01 19:25 | NUR ---
Receive patient lying in bed. Finishing up dialysis at this time. 2L out per dialysis nurse. Patient non-verbal, still appears weak and lethargic. In no apparent distress. On O2 at 1LPM via NC in place. NGT to left nares intact and patent. NGT feeding ongoing. HOB elevated. PICC line on left upper arm and PIV intact and patent. TKO. Dialysis cath on right groin area. Reese catheter intact and draining via gravity. Rectal tube in place. Isolation precaution observed. Safety measure initiated and call light within reached. Continue to monitor.
[2021-12-01 20:21] VITALS: BP 113/84
[2021-12-02] VITALS: BP 113/63
[2021-12-02] MEDS: NEPRO 1000 ML NG PRN (03:38)
[2021-12-02 04:00] VITALS: BP 99/48
[2021-12-02] MEDS: MIDODRINE HCL 5 MG TABLET PO SCH ×3 (05:08→21:07)
--- NOTE | 2021-12-02 05:47 | NUR ---
Patient appears calm and comfortable. In no apparent distress. Cooling measure was provided as well as Tylenol 650mg via NGt for increase temp/ Now afebrile. Controlled A. fib on tele with occasional PVC, HR of 100/min. Tolerated NGT feeding and flushing. O2 at 1LPM via NC. Sating 100%. Reese catheter intact and draining yellow urine output. Rectal tube intact with minimal liquid stool. Wound dressing remains intact, clean and dry. Isolation precaution maintained. Kept clean and comfortable. Reposition for comfort.
[2021-12-02 05:49] LABS: MEAN CORPUSCULAR HEMOGLOBIN 32.4 uug (23.8-33.4); MEAN CORPUSCULAR VOLUME 95.3 fL (73.0-96.2); PLATELET COUNT (AUTO) 127 K/uL (152-348)
[2021-12-02 06:06] LABS: ALANINE AMINOTRANSFERASE 56 U/L (16-63); ALKALINE PHOSPHATASE 56 U/L (50-136); ASPARTATE AMINOTRANSFERASE 32 U/L (15-37); BILIRUBIN,TOTAL 0.3 mg/dL (0.2-1.0); CARBON DIOXIDE 28 mmol/L (21-32); CHLORIDE 104 mmol/L (98-107); CREATININE 2.6 mg/dL (0.6-1.3); GLUCOSE 112 mg/dL (74-106); PHOSPHOROUS 4.2 mg/dL (2.5-4.9); POTASSIUM 4.2 mmol/L (3.5-5.1); UREA NITROGEN, BLOOD 54 mg/dL (7-18)
[2021-12-02] MEDS: MODAFINIL 100 MG TABLET NG SCH (08:46)
[2021-12-02] MEDS: FAMOTIDINE 20 MG TABLET NG SCH (08:46)
[2021-12-02] MEDS: THIAMINE HCL 100 MG TABLET NG SCH (08:46)
[2021-12-02] MEDS: FOLIC ACID 1 MG TABLET NG SCH (08:47)
[2021-12-02] MEDS: CADEXOMER IODINE 40 GM TUBE TOP SCH (08:49)
[2021-12-02] MEDS: ARGININE/GLUTAMINE/CALCIUM BMB 1 EACH POWD.PACK NG SCH ×2 (08:49→17:23)
[2021-12-02 11:58] VITALS: BP 119/54
--- NOTE | 2021-12-02 13:57 | NUR ---
NO ACUTE CHANGE FROM MORNING ASSESSMENT STATUS CHANGED TO MED/SURG
[2021-12-02] MEDS: CEFTRIAXONE 2 G in IV DEXTROSE 5% 100 ML IV SCH (14:02)
[2021-12-02 16:27] VITALS: BP 115/50
[2021-12-02 20:00] VITALS: BP 118/60
[2021-12-03 04:28] VITALS: BP 116/61
[2021-12-03] MEDS: MIDODRINE HCL 5 MG TABLET PO SCH ×4 (05:08→22:00)
--- NOTE | 2021-12-03 06:36 | NUR ---
Patient appears comfortable. NGT feeding and flushing well tolerated. O2 at 1LPM via NC. Reese catheter intact and draining. Rectal tube remains intact. Isolation precaution maintained. Kept clean and comfortable. Reposition for comfort.
[2021-12-03 06:39] LABS: HEMATOCRIT 26.8 % (36.7-47.1); MEAN CORPUSCULAR HEMOGLOBIN 32.6 uug (23.8-33.4); MEAN CORPUSCULAR VOLUME 95.8 fL (73.0-96.2); PLATELET COUNT (AUTO) 173 K/uL (152-348)
[2021-12-03 07:02] LABS: CARBON DIOXIDE 29 mmol/L (21-32); CHLORIDE 106 mmol/L (98-107); CREATININE 2.7 mg/dL (0.6-1.3); GLUCOSE 121 mg/dL (74-106); MAGNESIUM 1.9 mg/dL (1.8-2.4); PHOSPHOROUS 4.6 mg/dL (2.5-4.9); POTASSIUM 4.5 mmol/L (3.5-5.1); UREA NITROGEN, BLOOD 65 mg/dL (7-18)
--- NOTE | 2021-12-03 08:00 | NUR ---
RESTING WITH EYES CLOSED BUT OPENS SPONTANEOUSLY,WITH DEEP TACTILE STIMULI, SATURATING 95% W2ITH 1L NC. CONTINUE WITH NGT FEEDING 55 MLS/HR.
[2021-12-03] MEDS: CADEXOMER IODINE 40 GM TUBE TOP SCH (09:29)
[2021-12-03] MEDS: ARGININE/GLUTAMINE/CALCIUM BMB 1 EACH POWD.PACK NG SCH ×2 (09:29→17:15)
[2021-12-03] MEDS: FOLIC ACID 1 MG TABLET NG SCH (09:29)
[2021-12-03] MEDS: THIAMINE HCL 100 MG TABLET NG SCH (09:29)
[2021-12-03] MEDS: MODAFINIL 100 MG TABLET NG SCH (09:29)
[2021-12-03] MEDS: FAMOTIDINE 20 MG TABLET NG SCH (09:29)
--- NOTE | 2021-12-03 10:30 | NUR ---
SEEN BY HOSPITALIST AND SLUMBER ROOM ATTENDANT SEE NOTES
[2021-12-03 12:11] VITALS: BP 135/74
--- NOTE | 2021-12-03 13:31 | NUR ---
1400 MIDODRINE NOT GIVEN BP 137/74
--- NOTE | 2021-12-03 13:50 | NUR ---
HEMODIALYSIS STARTED AT BEDSIDE, CLOSELY MONITORED
[2021-12-03] MEDS: CEFTRIAXONE 2 G in IV DEXTROSE 5% 100 ML IV SCH (14:07)
--- NOTE | 2021-12-03 15:22 | NUR ---
SEEN BY DR SAMSON FOR VASCULAR FOLLOW-UP SEE NOTES.
[2021-12-03 15:58] VITALS: BP 106/66
--- NOTE | 2021-12-03 16:54 | NUR ---
hd completed without complication removed 300 mls of fluid
--- NOTE | 2021-12-03 20:00 | NUR ---
Received pt with eyes closed no signs of distress noted pt makes sounds. pt reposition every 2 hours no sob noted. Medication given as ordered will continue to monitor for safety.
[2021-12-03 20:25] VITALS: BP 116/57
[2021-12-04 04:42] VITALS: BP 121/55
[2021-12-04 06:48] LABS: HEMATOCRIT 24.4 % (36.7-47.1); MEAN CORPUSCULAR HEMOGLOBIN 32.8 uug (23.8-33.4); MEAN CORPUSCULAR VOLUME 94.9 fL (73.0-96.2); PLATELET COUNT (AUTO) 187 K/uL (152-348)
[2021-12-04 07:00] LABS: CARBON DIOXIDE 30 mmol/L (21-32); CHLORIDE 105 mmol/L (98-107); CREATININE 2.1 mg/dL (0.6-1.3); GLUCOSE 115 mg/dL (74-106); MAGNESIUM 1.8 mg/dL (1.8-2.4); PHOSPHOROUS 3.7 mg/dL (2.5-4.9); POTASSIUM 4.2 mmol/L (3.5-5.1); UREA NITROGEN, BLOOD 48 mg/dL (7-18)
[2021-12-04] MEDS: MIDODRINE HCL 5 MG TABLET PO SCH ×2 (07:13→21:26)
--- NOTE | 2021-12-04 08:02 | NUR ---
Report given to am nurse gt turned off at 0600 tolerated feeding well during the shift no signs of distention or emesis noted. Medication given as ordered no adverse reaction noted.
[2021-12-04] MEDS: FOLIC ACID 1 MG TABLET NG SCH (09:08)
[2021-12-04] MEDS: THIAMINE HCL 100 MG TABLET NG SCH (09:08)
[2021-12-04] MEDS: FAMOTIDINE 20 MG TABLET NG SCH (09:08)
[2021-12-04] MEDS: MODAFINIL 100 MG TABLET NG SCH (09:08)
[2021-12-04] MEDS: ARGININE/GLUTAMINE/CALCIUM BMB 1 EACH POWD.PACK NG SCH ×2 (09:09→16:55)
[2021-12-04] MEDS: NEPRO 1000 ML NG PRN (09:12)
--- NOTE | 2021-12-04 11:15 | NUR ---
Receive patient lying in bed HOB elevated. Patient non-verbal. In no apparent distress. On O2 at 1LPM via NC in place. NGT to left nares intact and patent. NGT feeding Nepro 1.8 ongoing at 55ml/hr tolerated well. HOB elevated. PICC line on left upper arm and PIV intact and patent continue on ATB with Rocephin for sepsis no S/S of A/R noted. Dialysis cath on right groin area. Reese catheter intact and draining via gravity yellow color urine. Rectal tube in place. Safety measure initiated and call light within reached. Continue to monitor closely for comfort and safety.
[2021-12-04 12:00] VITALS: BP 127/60
[2021-12-04] MEDS: CADEXOMER IODINE 40 GM TUBE TOP SCH (12:09)
[2021-12-04] MEDS: ACETAMINOPHEN 325 MG TABLET PO PRN (14:07)
[2021-12-04] MEDS: CEFTRIAXONE 2 G in IV DEXTROSE 5% 100 ML IV SCH (14:07)
[2021-12-04] MEDS ORDERED: CEFTRIAXONE 2 G in IV DEXTROSE 5% 100 ML IV SCH (15:00)
[2021-12-04 16:00] VITALS: BP 106/64
[2021-12-04 20:23] VITALS: BP 110/64
--- NOTE | 2021-12-04 21:26 | NUR ---
DUE MEDICATION CRUSHED AND GIVEN VIA THE NGT TUBE ,FLUSHED NGT TUBE ,CHECKED RESIDUAL VERY MINIMAL 20 ML .CONTINUE WITH TF PATIENT ON NEPRO AT 55 ML/HR .
[2021-12-05 04:52] VITALS: BP 104/68
[2021-12-05] MEDS: MIDODRINE HCL 5 MG TABLET PO SCH ×3 (05:20→21:38)
[2021-12-05 06:18] LABS: HEMATOCRIT 26.2 % (36.7-47.1); MEAN CORPUSCULAR HEMOGLOBIN 31.7 uug (23.8-33.4); MEAN CORPUSCULAR VOLUME 94.2 fL (73.0-96.2); PLATELET COUNT (AUTO) 206 K/uL (152-348)
[2021-12-05 06:43] LABS: CARBON DIOXIDE 30 mmol/L (21-32); CHLORIDE 103 mmol/L (98-107); CREATININE 2.2 mg/dL (0.6-1.3); FERRITIN 835 ng/mL (26-388); GLUCOSE 106 mg/dL (74-106); MAGNESIUM 1.8 mg/dL (1.8-2.4); PHOSPHOROUS 4.4 mg/dL (2.5-4.9); POTASSIUM 4.4 mmol/L (3.5-5.1); UREA NITROGEN, BLOOD 60 mg/dL (7-18)
[2021-12-05 06:53] LABS: IRON, SERUM 17 ug/dL (50-175)
[2021-12-05] MEDS: NEPRO 1000 ML NG PRN (08:00)
[2021-12-05] MEDS: THIAMINE HCL 100 MG TABLET NG SCH (09:03)
[2021-12-05] MEDS: FAMOTIDINE 20 MG TABLET NG SCH (09:04)
[2021-12-05] MEDS: MODAFINIL 100 MG TABLET NG SCH (09:04)
[2021-12-05] MEDS: ARGININE/GLUTAMINE/CALCIUM BMB 1 EACH POWD.PACK NG SCH ×2 (09:04→18:13)
[2021-12-05] MEDS: CADEXOMER IODINE 40 GM TUBE TOP SCH (09:04)
[2021-12-05] MEDS: FOLIC ACID 1 MG TABLET NG SCH (09:04)
[2021-12-05 12:09] VITALS: BP 110/62
--- NOTE | 2021-12-05 13:00 | NUR ---
Seen by KEVIN Padgett, possible DC tomorrow if CM is able to find placement.
[2021-12-05] MEDS: CEFTRIAXONE 2 G in IV DEXTROSE 5% 100 ML IV SCH (13:21)
[2021-12-05 16:09] VITALS: BP 138/74
--- NOTE | 2021-12-05 20:00 | NUR ---
RECEIVED REPLORT FROM AM NURSE JESSIE PT RESPONDS TO TACTILE STIMULI. pT HAS GTUBE FEEDING OF NEPHRO INFUSING AT 55ML/HR NO SIGNS OF DISTENTION OF THE ABD OR RESPIRATORY DISTRESS NOTED. WILL CONTINUE TO MONITOR FOR SAFETY BED IN LOW POSITION PT IS MONITOR HOURLY PT IS DNR DNI .
[2021-12-05 20:10] VITALS: BP 108/62
--- NOTE | 2021-12-05 22:44 | NUR ---
MEDICATION GIVEN ORDERED CRUSHED AND ADMINISTERED VIA GT WILL CONTINUE TO MONITOR NO ADVERSE REACTION FROM MEDICATION.
[2021-12-06 04:10] VITALS: BP 120/62
[2021-12-06] MEDS: MIDODRINE HCL 5 MG TABLET PO SCH ×3 (06:23→21:11)
[2021-12-06 06:38] LABS: HEMATOCRIT 27.9 % (36.7-47.1); MEAN CORPUSCULAR HEMOGLOBIN 32.7 uug (23.8-33.4); MEAN CORPUSCULAR VOLUME 95.3 fL (73.0-96.2); PLATELET COUNT (AUTO) 236 K/uL (152-348)
[2021-12-06 06:50] LABS: CARBON DIOXIDE 28 mmol/L (21-32); CHLORIDE 105 mmol/L (98-107); CREATININE 2.2 mg/dL (0.6-1.3); GLUCOSE 123 mg/dL (74-106); MAGNESIUM 1.8 mg/dL (1.8-2.4); PHOSPHOROUS 4.2 mg/dL (2.5-4.9); POTASSIUM 4.7 mmol/L (3.5-5.1); UREA NITROGEN, BLOOD 68 mg/dL (7-18)
--- NOTE | 2021-12-06 09:32 | NUR ---
RECEIVED REPORT FROM PM NURSE PT RESPONDS TO TACTILE STIMULI. PT IS ON G-TUBE FEEDING OF NEPHRO INFUSING AT 55ML/HR NO SIGNS OF DISTENTION OF THE ABDOMINAL OR RESPIRATORY DISTRESS NOTED. WILL CONTINUE TO MONITOR FOR SAFETY BED IN LOW POSITION PT IS MONITOR HOURLY PT IS DNR DNI .
[2021-12-06] MEDS: THIAMINE HCL 100 MG TABLET NG SCH (09:35)
[2021-12-06] MEDS: MODAFINIL 100 MG TABLET NG SCH (09:35)
[2021-12-06] MEDS: FOLIC ACID 1 MG TABLET NG SCH (09:36)
[2021-12-06] MEDS: FAMOTIDINE 20 MG TABLET NG SCH (09:36)
[2021-12-06] MEDS: ARGININE/GLUTAMINE/CALCIUM BMB 1 EACH POWD.PACK NG SCH ×2 (09:47→17:24)
[2021-12-06] MEDS: NEPRO 1000 ML NG PRN (11:35)
[2021-12-06 12:01] VITALS: BP 128/64
--- NOTE | 2021-12-06 14:42 | NUR ---
Dialysis was started at 1310. At the moment patirnt is tolerating it well. No changes, no distress noted. Will continue to monitor
[2021-12-06 16:10] VITALS: BP 102/64
--- NOTE | 2021-12-06 16:16 | NUR ---
Dialysis ended at 1600, output 1.5 L, post dialysis BP: 106/67, pulse 82. Patient is in bed, no distress noted, will continue to monitor. Also will administer his 1400 medication now (Rocephin IV and Midodrine tab via NG tube).
[2021-12-06] MEDS: CEFTRIAXONE 2 G in IV DEXTROSE 5% 100 ML IV SCH (16:24)
[2021-12-06] MEDS: CADEXOMER IODINE 40 GM TUBE TOP SCH (16:28)
[2021-12-06 20:00] VITALS: BP 112/59
[2021-12-07 04:36] VITALS: BP 112/55
[2021-12-07] MEDS: MIDODRINE HCL 5 MG TABLET PO SCH ×2 (06:04→14:10)
[2021-12-07] MEDS: NEPRO 1000 ML NG PRN (06:13)
[2021-12-07 06:45] LABS: HEMATOCRIT 31.3 % (36.7-47.1); MEAN CORPUSCULAR HEMOGLOBIN 32.4 uug (23.8-33.4); MEAN CORPUSCULAR VOLUME 94.5 fL (73.0-96.2); PLATELET COUNT (AUTO) 161 K/uL (152-348)
[2021-12-07 06:57] LABS: NEUTROPHILS % (MANUAL) 0 % (42-75)
[2021-12-07 07:09] LABS: CARBON DIOXIDE 30 mmol/L (21-32); CHLORIDE 103 mmol/L (98-107); CREATININE 2.1 mg/dL (0.6-1.3); GLUCOSE 124 mg/dL (74-106); MAGNESIUM 1.8 mg/dL (1.8-2.4); PHOSPHOROUS 3.7 mg/dL (2.5-4.9); POTASSIUM 4.6 mmol/L (3.5-5.1); UREA NITROGEN, BLOOD 66 mg/dL (7-18)
[2021-12-07 08:00] VITALS: BP 118/55
[2021-12-07] MEDS: FOLIC ACID 1 MG TABLET NG SCH (08:05)
[2021-12-07] MEDS: MODAFINIL 100 MG TABLET NG SCH (08:05)
[2021-12-07] MEDS: FAMOTIDINE 20 MG TABLET NG SCH (08:05)
[2021-12-07] MEDS: THIAMINE HCL 100 MG TABLET NG SCH (08:05)
[2021-12-07] MEDS: ARGININE/GLUTAMINE/CALCIUM BMB 1 EACH POWD.PACK NG SCH ×2 (08:06→16:32)
[2021-12-07] MEDS: CADEXOMER IODINE 40 GM TUBE TOP SCH (08:06)
[2021-12-07] MEDS: MORPHINE SULFATE 4 MG/1 ML DISP.SYRIN IV PRN ×2 (09:49→18:02)
[2021-12-07 12:03] VITALS: BP 110/51
[2021-12-07 12:38] VITALS: BP 97/50
[2021-12-07] MEDS: CEFTRIAXONE 2 G in IV DEXTROSE 5% 100 ML IV SCH (14:09)
[2021-12-07 16:36] VITALS: BP 126/76
--- NOTE | 2021-12-07 17:22 | NUR ---
patient is unable to communicate, responses to tactile stimuli, NG tune is intact, with positive placement, no residual noted, tolerating g-tube feeding well, dressing changed as ordered, PICC line is intact, and patent, right femoral catheter is intact, no signs and symptoms of active bleeding noted, patient seems very comfortable, no sign and symptoms of pain noted. heels floated on pillows, turned and repositioned, bed bath given, alston and rectal tube in place. moderated diarrhea noted in the rectal tube bag. continue with care.
[2021-12-07 20:24] VITALS: BP 95/56
[2021-12-07] MEDS: MIDODRINE HCL 5 MG TABLET NG SCH (22:39)
[2021-12-08 04:30] VITALS: BP 99/52
[2021-12-08] MEDS: MIDODRINE HCL 5 MG TABLET NG SCH ×3 (06:16→21:51)
[2021-12-08 06:52] LABS: HEMATOCRIT 25.4 % (36.7-47.1); MEAN CORPUSCULAR HEMOGLOBIN 32.5 uug (23.8-33.4); MEAN CORPUSCULAR VOLUME 95.6 fL (73.0-96.2); PLATELET COUNT (AUTO) 194 K/uL (152-348)
--- NOTE | 2021-12-08 07:09 | NUR ---
PATIENT EYES CLOSE, RESPOND TO PAINFUL AND VERBAL STIMULI, HOB ELEVATED, ON NGT TOLERATE WELL NO N/V NOTED, STILL ON RECTAL TUBE DRAINING WITH BROWNISH COLOR LIQUID FECES IN MODERATE AMOUNT. TX CONT ON MULTIPLE WOUND, CONT TO MONITOR.
[2021-12-08 07:12] LABS: CARBON DIOXIDE 28 mmol/L (21-32); CHLORIDE 104 mmol/L (98-107); CREATININE 2.4 mg/dL (0.6-1.3); GLUCOSE 128 mg/dL (74-106)
[2021-12-08 08:05] LABS: UREA NITROGEN, BLOOD 82 mg/dL (7-18)
[2021-12-08] MEDS: CADEXOMER IODINE 40 GM TUBE TOP SCH (09:00)
--- NOTE | 2021-12-08 09:36 | NUR ---
Patient receiving dialysis. Dialysis nurse recommended to give medications once dialysis complete.
[2021-12-08 12:00] VITALS: BP 113/52
[2021-12-08] MEDS: MODAFINIL 100 MG TABLET NG SCH (12:05)
[2021-12-08] MEDS: THIAMINE HCL 100 MG TABLET NG SCH (12:05)
[2021-12-08] MEDS: ARGININE/GLUTAMINE/CALCIUM BMB 1 EACH POWD.PACK NG SCH ×2 (12:05→16:41)
[2021-12-08] MEDS: FOLIC ACID 1 MG TABLET NG SCH (12:06)
[2021-12-08] MEDS: FAMOTIDINE 20 MG TABLET NG SCH (12:06)
[2021-12-08] MEDS: NEPRO 1000 ML NG PRN (12:10)
[2021-12-08] MEDS: CEFTRIAXONE 2 G in IV DEXTROSE 5% 100 ML IV SCH (13:02)
[2021-12-08 16:33] VITALS: BP 97/50
--- NOTE | 2021-12-08 18:46 | NUR ---
Patient tolerated care well today throughout shift with no signs of distress or pain. Patient tolerated feeding well today. Wound managed with appropriate interventions. IV site intact and patent. NG-Tube patent and intact. Bed left in lowest position. Comfort measures provided.
[2021-12-08 20:00] VITALS: BP 107/62
[2021-12-09] MEDS: ACETAMINOPHEN 325 MG TABLET PO PRN (04:40)
[2021-12-09 04:43] VITALS: BP 113/55
--- NOTE | 2021-12-09 04:53 | NUR ---
Patient has temp 101. notify Dominga Padgett, with no new order.
[2021-12-09] MEDS: MIDODRINE HCL 5 MG TABLET NG SCH ×2 (06:04→15:00)
[2021-12-09 07:33] LABS: HEMATOCRIT 24.6 % (36.7-47.1); MEAN CORPUSCULAR HEMOGLOBIN 32.4 uug (23.8-33.4); MEAN CORPUSCULAR VOLUME 94.4 fL (73.0-96.2); PLATELET COUNT (AUTO) 202 K/uL (152-348)
[2021-12-09 07:37] LABS: CARBON DIOXIDE 28 mmol/L (21-32); CHLORIDE 100 mmol/L (98-107); CREATININE 2.3 mg/dL (0.6-1.3); GLUCOSE 128 mg/dL (74-106); POTASSIUM 4.3 mmol/L (3.5-5.1); UREA NITROGEN, BLOOD 68 mg/dL (7-18)
[2021-12-09] MEDS: FOLIC ACID 1 MG TABLET NG SCH (09:31)
[2021-12-09] MEDS: FAMOTIDINE 20 MG TABLET NG SCH (09:31)
[2021-12-09] MEDS: THIAMINE HCL 100 MG TABLET NG SCH (09:31)
[2021-12-09] MEDS: MODAFINIL 100 MG TABLET NG SCH (09:31)
[2021-12-09] MEDS: ARGININE/GLUTAMINE/CALCIUM BMB 1 EACH POWD.PACK NG SCH (09:32)
[2021-12-09] MEDS: CADEXOMER IODINE 40 GM TUBE TOP SCH (09:32)
--- NOTE | 2021-12-09 10:23 | NUR ---
received called from Paige from [facility], per Paige patient will be discharged to [facility] in [place], report was given to Paige per request
--- NOTE | 2021-12-09 12:00 | NUR ---
spoke with Emy at [facility] and relayed negative rapid covid test
[2021-12-09 12:13] VITALS: BP 95/59
[2021-12-09] MEDS ORDERED: CADE40GE2 TOP (13:40)
[2021-12-09] MEDS ORDERED: ACET325T53 PO (13:40)
[2021-12-09] MEDS ORDERED: IPRA0.2S6 NEB (13:40)
[2021-12-09] MEDS ORDERED: FAMO20TA8 NG (13:40)
[2021-12-09] MEDS ORDERED: ACET650S13 RC (13:40)
[2021-12-09] MEDS ORDERED: Nepro NG (13:40)
[2021-12-09] MEDS ORDERED: LORA2VIA6 IV (13:40)
[2021-12-09] MEDS ORDERED: FOLI1TAB94 NG (13:40)
--- NOTE | 2021-12-09 14:25 | NUR ---
new discharge order, clarified with Wendy Mccray [employer] SUPERVISOR with order to d.c rectal tube. patient to be discharged with picc line, alston catheter, NG tube.
[2021-12-09 15:00] VITALS: BP 110/57
--- NOTE | 2021-12-09 15:30 | NUR ---
patient discharged to [facility] all paperwork signed by 2 RN patient unable to sign due to cognitive impairment. Inventory list complete. upon discharge patient with v/s wnl, afebrile, no signs of pain or discomfort.
--- NOTE | 2021-12-09 15:35 | NUR ---
patient picked up by 2 supervisor customer services, report given to supervisor customer services. reminded emt that report was given to rachel at [facility]. all questions answered.
== END 2021-12-09 15:35 | disposition hospice, inpatient (51) | DRG 871 ==
LOC: ER 15:08 → TRANSITION 20:29 → CCU 11-23 20:14 → TRANSITION 11-25 07:45 → TELE-TD3 11-29 20:23 → TELE3 12-01 09:48 → MEDSURG3 12-02 08:17
PROVIDERS: ADMIT Nurse Practitioner Acute Care; ATTEND Nurse Practitioner Acute Care
PROC: 02HV33Z Insertion of Infusion Device into Superior Vena Cava, Percutaneous Approach (ICD-10-PCS; principal; 2021-11-21)
PROC: B548ZZA Ultrasonography of Superior Vena Cava, Guidance (ICD-10-PCS; 2021-11-21)
PROC: 06HM33Z Insertion of Infusion Device into Right Femoral Vein, Percutaneous Approach (ICD-10-PCS; 2021-11-23)
PROC: B54BZZA Ultrasonography of Right Lower Extremity Veins, Guidance (ICD-10-PCS; 2021-11-23)
PROC: 5A1D70Z Performance of Urinary Filtration, Intermittent, Less than 6 Hours Per Day (ICD-10-PCS; 2021-11-23)
PROC: 0JBP3ZZ Excision of Left Lower Leg Subcutaneous Tissue and Fascia, Percutaneous Approach (ICD-10-PCS; 2021-11-24)
PROC: 0JBN3ZZ Excision of Right Lower Leg Subcutaneous Tissue and Fascia, Percutaneous Approach (ICD-10-PCS; 2021-11-24)
PROC: 30233R1 Transfusion of Nonautologous Platelets into Peripheral Vein, Percutaneous Approach (ICD-10-PCS; 2021-11-25)
DX: A40.0 Sepsis due to streptococcus, group A (principal); G93.41 Metabolic encephalopathy; J96.01 Acute respiratory failure with hypoxia; N17.0 Acute kidney failure with tubular necrosis; R65.21 Severe sepsis with septic shock; I63.9 Cerebral infarction, unspecified; E43 Unspecified severe protein-calorie malnutrition; I21.A1 Myocardial infarction type 2; K76.7 Hepatorenal syndrome; I63.511 Cerebral infarction due to unspecified occlusion or stenosis of right middle cerebral artery; L03.115 Cellulitis of right lower limb; L03.116 Cellulitis of left lower limb; E87.2 Acidosis; I48.20 Chronic atrial fibrillation, unspecified; J98.11 Atelectasis; M62.82 Rhabdomyolysis; D68.9 Coagulation defect, unspecified; I42.9 Cardiomyopathy, unspecified; I87.313 Chronic venous hypertension (idiopathic) with ulcer of bilateral lower extremity; L97.828 Non-pressure chronic ulcer of other part of left lower leg with other specified severity; L97.818 Non-pressure chronic ulcer of other part of right lower leg with other specified severity; K92.2 Gastrointestinal hemorrhage, unspecified; I13.0 Hypertensive heart and chronic kidney disease with heart failure and stage 1 through stage 4 chronic kidney disease, or unspecified chronic kidney disease; D69.6 Thrombocytopenia, unspecified; E86.0 Dehydration; E87.5 Hyperkalemia; I50.9 Heart failure, unspecified; E88.09 Other disorders of plasma-protein metabolism, not elsewhere classified; I87.2 Venous insufficiency (chronic) (peripheral); N40.0 Benign prostatic hyperplasia without lower urinary tract symptoms; N18.9 Chronic kidney disease, unspecified; S90.421A Blister (nonthermal), right great toe, initial encounter; Z20.822 Contact with and (suspected) exposure to COVID-19; R74.01 Elevation of levels of liver transaminase levels; Z59.00 Homelessness unspecified; D64.9 Anemia, unspecified; F17.210 Nicotine dependence, cigarettes, uncomplicated; F10.10 Alcohol abuse, uncomplicated; Y90.0 Blood alcohol level of less than 20 mg/100 ml; L89.156 Pressure-induced deep tissue damage of sacral region; L89.316 Pressure-induced deep tissue damage of right buttock; K52.9 Noninfective gastroenteritis and colitis, unspecified; E80.6 Other disorders of bilirubin metabolism; L89.626 Pressure-induced deep tissue damage of left heel; L89.616 Pressure-induced deep tissue damage of right heel; S91.101A Unspecified open wound of right great toe without damage to nail, initial encounter; X58.XXXA Exposure to other specified factors, initial encounter; Y93.9 Activity, unspecified; Y92.89 Other specified places as the place of occurrence of the external cause; L89.896 Pressure-induced deep tissue damage of other site; S71.102A Unspecified open wound, left thigh, initial encounter; S81.002A Unspecified open wound, left knee, initial encounter; R23.8 Other skin changes; I77.1 Stricture of artery; Z68.21 Body mass index [BMI] 21.0-21.9, adult; I08.1 Rheumatic disorders of both mitral and tricuspid valves; J47.9 Bronchiectasis, uncomplicated; M43.15 Spondylolisthesis, thoracolumbar region; B96.20 Unspecified Escherichia coli [E. coli] as the cause of diseases classified elsewhere
CPT/HCPCS: 36415; 36569; 36600; 70030-TC; 70450; 71045; 71250; 72125; 73700; 76770; 82746; 82784; 83550; 83605; 83735; 83970; 84100; 84155; 84156; 84165; 84300; 84443; 84484; 85025; 85610; 85651; 85730; 86038; 86140; 86334; 86706; 86708; 86803; 86850; 86900; 86901; 87040; 87070; 87077; 87086; 87340; 87806; 90937; 93005; 93307; 94640; 94664; 95819; A4663; A6209; A6213; C9113; G0378; G0480; J0282; J0696; J1160; J1644; J2150; J2270; J2370; J2405; J2543; J3370; J3411; J3490; J3590; J7040; J7050; J7060; J7070; P9035